=== PATIENT | male | born 1945 | race Caucasian/White ===

== ENCOUNTER 2016-11-29 13:18 | Inpatient (IN) | payer MEDICARE, MEDICAID ==
--- NOTE | 2016-11-29 13:59 | ED Physician Chart ---
Chief Complaint/HPI - Patient Information Date Seen:: 11/29/16 Time Seen:: 13:45 Chief Complaint:: aggressive behavior History of Present Illness:: Patient has reportedly been exhibiting aggressive behavior and using profanity at his assisted living facility. Allergies:: Allergies Allergy/AdvReac Type Severity Reaction Status Date / Time No Known Allergies Allergy Verified 03/21/16 16:50 Historian:: Patient Review:: Nurse's Note Reviewed, Transfer documents Reviewed Review of Systems - Review of Systems General/Constitutional: No fever, No chills, Weight loss Head: No headache Eyes: No loss of vision ENT: No earache Cardio Vascular: No chest pain Pulmonary: No SOB GI: No nausea, No vomiting G/U: No dysuria Musculoskeletal: No bone or joint pain, No muscle pain Endocrine: No polyuria, No polydipsia Psychiatric: Prior psych history Hematopoietic: No bruising Allergic/Immuno: No urticaria Neurological: No syncope, No headache Past Medical History - Past Medical History Past Medical History: HTN, Arthritis, Other (peripheral vascular disease; psychosis; dementia) Family History: None Social History: Non Smoker, Alcohol (slight alcohol consumption only) Surgical History: None Psychiatricy History: Dementia, Other (psychosis) Medication: Reviewed Family Medical History - Family Member Mother History Unknown: Yes Labs/Radiology/EKG Results - Lab Results Results: Laboratory Tests 11/29/16 13:43 POC Glucose 248 H Laboratory Results - last 24 hr 11/29/16 11/29/16 11/29/16 13:43 14:06 14:06 WBC 9.7 RBC 3.71 L Hgb 10.4 L Hct 31.3 L MCV 84.5 MCH 28.1 MCHC Differential 33.3 RDW 14.4 Plt Count 221 MPV 9.6 Neutrophils % 72.8 Lymphocytes % 14.9 L Monocytes % 7.3 Eosinophils % 4.3 Basophils % 0.7 Sodium 136 Potassium 3.9 Chloride 107 Carbon Dioxide 26.0 Anion Gap 6.9 L BUN 29 H Creatinine 1.0 Est GFR ( Amer) TNP Est GFR (Non-Af Amer) TNP BUN/Creatinine Ratio 29.0 Glucose 278 H POC Glucose 248 H Calcium 9.7 Total Bilirubin 0.3 AST 20 ALT 16 Alkaline Phosphatase 91 Total Protein 7.3 Albumin 4.0 L Globulin 3.3 Albumin/Globulin Ratio 1.2 TSH 11/29/16 14:06 WBC RBC Hgb Hct MCV MCH MCHC Differential RDW Plt Count MPV Neutrophils % Lymphocytes % Monocytes % Eosinophils % Basophils % Sodium Potassium Chloride Carbon Dioxide Anion Gap BUN Creatinine Est GFR ( Amer) Est GFR (Non-Af Amer) BUN/Creatinine Ratio Glucose POC Glucose Calcium Total Bilirubin AST ALT Alkaline Phosphatase Total Protein Albumin Globulin Albumin/Globulin Ratio TSH 0.73 Assessment - Assessment General Assessment: Patient uncooperative for EKG ED Septic Shock - . Is Septic Shock (SBP<90, OR Lactate>4 mmol\L) present?: No Reassessment (Disposition) - Reassessment Reassessment Condition:: Unchanged - Diagnosis Diagnosis:: dementia with aggressive behavior - Patient Disposition Admitted to:: [facility] Admitting Medical Physician:: Roly Campbell Admitting Psych Physician:: Nancy Valdes Condition at Disposition:: Stable, Unchanged
[2016-11-29 14:18] LABS: % BASOPHILS 0.7 % (0.0-2.0); % EOSINOPHILS 4.3 % (0.0-5.0); % LYMPHOCYTES 14.9 % (20.0-50.0); % MONOCYTES 7.3 % (2.0-10.0); % NEUTROPHILS 72.8 % (40.0-80.0); HEMATOCRIT 31.3 % (39.0-49.0); HEMOGLOBIN 10.4 gm/dL (12.6-17.4); MEAN CELL VOLUME 84.5 fl (80-99); MEAN CORPUSCULAR HEMOGLOBIN 28.1 pg (27.0-31.0); MEAN CORPUSCULAR HGB CONC 33.3 pg (28.0-36.0); MEAN PLATELET VOLUME 9.6 fl; NEUTROPHILE ABSOLUTE 7.1 Th/cmm (1.8-8.0); PLATELET COUNT 221 Th/cmm (150-400); RED BLOOD COUNT 3.71 Mil/cmm (3.80-5.80); RED CELL DISTRIBUTION WIDTH 14.4 % (11.5-20.0); WHITE BLOOD COUNT 9.7 Th/cmm (4.8-10.8)
[2016-11-29 14:30] LABS: ALB/GLOB RATIO 1.2 (1.0-1.8); ALKALINE PHOSPHATASE 91 U/L (34-104); ANION GAP 6.9 (7.0-16.0); BILIRUBIN,TOTAL 0.3 mg/dL (0.3-1.0); BUN - UREA NITROGEN 29 mg/dL (7-25); CALCIUM SERUM 9.7 mg/dL (8.6-10.3); CHLORIDE 107 mEq/L (98-107); GLUCOSE 278 mg/dL (70-105); POTASSIUM SERUM 3.9 mEq/L (3.5-5.1); SGOT 20 U/L (13-39); SGPT/ALT 16 U/L (7-52); SODIUM SERUM 136 mEq/L (136-145)
[2016-11-29] MEDS ORDERED: Maalox 30 mL Cup PO PRN (16:38)
[2016-11-29 16:48] VITALS: BP 132/65
[2016-11-29] MEDS: INSULIN ASPART SLIDING SCALE 100 UNITS/ML UNIT SUBQ SCH (20:47)
[2016-11-30] MEDS: INSULIN ASPART SLIDING SCALE 100 UNITS/ML UNIT SUBQ SCH ×4 (06:45→21:00)
[2016-11-30] MEDS ORDERED: Multivitamin Tab PO SCH (09:00)
[2016-11-30] MEDS: Insulin Detemir 100 units/mL 10mL Vial SUBQ SCH (09:57)
[2016-11-30] MEDS: Aspirin 81mg Chewable Tab PO SCH (09:59)
--- NOTE | 2016-11-30 12:25 | History & Physical ---
ADMIT DATE: 11/30/2016 IDENTIFYING INFORMATION: The patient is a 71-year-old male. CHIEF COMPLAINT: No answer. HISTORY OF PRESENT ILLNESS: The patient was referred from [facility]. He was cursing, resistant, agitated, restless. He was a poor historian, unable to participate in meaningful conversation; however, he is a well known case to me as I have seen him many times. I have been seeing him at [facility] with a history of dementia and depression. Unable to participate in any meaningful conversation. No current substance abuse. PAST PSYCHIATRIC HISTORY: The patient has multiple prior admissions to this facility because of depression, agitation. The patient has been on Aricept 10 mg at bedtime. MEDICAL HISTORY: The patient has no known drug allergies. MEDICATIONS: The patient is diabetic. Has high blood pressure, chronic pain and high lipid profile. FAMILY AND SOCIAL HISTORY: The patient has been at [facility]. No further information available. No substance abuse, no legal problem. MENTAL STATUS EXAMINATION: The patient is appropriately dressed, ____ well groomed. Mood is depressed. Affect is sad. Thoughts are fragmented. The patient is unable to participate in a meaningful conversation or tell me the date, where he is, why he is here. His body is full of bruises. Unable to participate in a meaningful conversation or give me any information regarding how he feels, if he wants to harm himself or anybody, hearing voices. His long and short-term memory is poor. From my previous evaluation for him, his insight and judgment is impaired. IMPRESSION: AXIS I: Major depression, recurrent with no psychosis; rule out bipolar disorder and dementia. His assets, he wants to get ____, negative poor coping skills. INITIAL TREATMENT PLAN: The patient will be started on Lexapro, continued with the Aricept. We will do group therapy, milieu therapy, individual therapy. ESTIMATED LENGTH OF STAY: 3-7 days. DISCHARGE CRITERIA: Decreasing agitation, depression. After discharge, outpatient treatment. JOB# [id number]
[2016-11-30] MEDS ORDERED: Non-Formulary Item 1 EA (Acetaminophen [Acetaminophen] 650 MG) PO PRN (17:40)
--- NOTE | 2016-11-30 18:11 | History & Physical ---
ADMIT DATE: 11/29/2016 HISTORY OF PRESENT ILLNESS: The patient is a 71-year-old male with long history of diabetes mellitus, hypertension, hyperlipidemia, chronic anemia, dementia, [facility] for more advanced treatment. Apparently, the patient has been agitated, very confused. No fever, no chills, no nausea, no vomiting. PAST MEDICAL HISTORY: Significant for hypertension, hyperlipidemia, diabetes mellitus, chronic anemia, dementia. PAST SURGICAL HISTORY: No recent surgery. ALLERGIES: None. MEDICATIONS: Follow admission reconciliation. SOCIAL HISTORY: No smoking, no alcohol, no drugs. FAMILY HISTORY: Noncontributory. REVIEW OF SYSTEMS: RENAL SYSTEM: No history of chronic renal disorder. CARDIOVASCULAR SYSTEM: No coronary artery disease. ENDOCRINE SYSTEM: He has history of diabetes mellitus. GASTROINTESTINAL SYSTEM: No upper or lower gastrointestinal bleed. NEUROLOGICAL: He has history of dementia. MUSCULOSKELETAL SYSTEM: No muscular dystrophy. HEMATOLOGIC SYSTEM: He has chronic anemia. PHYSICAL EXAMINATION: GENERAL: He is awake, not coherent. VITAL SIGNS: Temperature 97.6, heart rate 70, blood pressure 103/49. HEENT: Normocephalic. Pupils reactive to light and accommodation. Sclerae clear. NECK: Supple. Negative for lymphadenopathy, JVD or bruit. CHEST: Bilateral normal. No rhonchi or wheezing. HEART: S1, S2 normal. No murmur or gallop. ABDOMEN: Soft, bowel sounds positive. EXTREMITIES: No edema. NEUROLOGIC: He is awake, alert, not fully oriented. SKIN: Significant for multiple scratches on the skin of the upper extremities. LABORATORY DATA: White blood cells 9.7, hemoglobin 10.4, hematocrit 31.3, platelet is 221. Sodium 136, potassium 3.9, BUN 29, creatinine ____, glucose 248. ASSESSMENT: 1. Diabetes mellitus. 2. Hypertension. 3. Hyperlipidemia. 4. Chronic anemia. 5. Dementia. PLAN: The patient admitted to the hospital under Dr. Valdes's service. MEDICAL PROBLEMS ADDRESSED DURING THIS HOSPITALIZATION: Dementia, diabetes mellitus. MEDICAL PROBLEMS ADDRESSED AT DISCHARGE: Hypertension, hyperlipidemia. The patient is medically stable for activity. Thank you, Dr. Valdes, for asking me to see your patient. JOB# [id number]
[2016-12-01] MEDS: INSULIN ASPART SLIDING SCALE 100 UNITS/ML UNIT SUBQ SCH ×4 (06:51→21:06)
[2016-12-01] MEDS ORDERED: Magnesium Hydroxide (MOM) 30 mL UDC PO PRN (09:00)
[2016-12-01] MEDS: Aspirin 81mg Chewable Tab PO SCH (09:41)
[2016-12-01] MEDS: Ferrous Sulfate 325 MG TAB PO SCH (09:41)
[2016-12-01] MEDS: Escitalopram Oxalate 5 mg Tab PO SCH (09:41)
[2016-12-01] MEDS: Multivitamin w/ Minerals Tab PO SCH (09:41)
[2016-12-01] MEDS: Insulin Detemir 100 units/mL 10mL Vial SUBQ SCH (10:18)
--- NOTE | 2016-12-01 20:46 | Progress Notes ---
DATE: 12/01/2016 Dr. Brito covering for Dr. Valdes. SUBJECTIVE: Chart reviewed and the patient interviewed. Also discussed the patient's condition with the staff and reviewed records and labs. The patient is still pacing up and down the unit and he is still actively hallucinating and talking to himself. The patient also is easily agitated and has difficulty following other staff directions. The patient also is still confused and is still unable to carry on coherent conversation. Otherwise, the patient is compliant with taking his medications with no side effects of medications. ASSESSMENT: The patient is still agitated and can be dangerous to others. TREATMENT PLAN: We will continue monitoring his behavior and his condition and medications closely, and continue to work on placement issue and also behavioral modification. JOB# [id number]
[2016-12-02] MEDS: INSULIN ASPART SLIDING SCALE 100 UNITS/ML UNIT SUBQ SCH ×3 (06:31→20:30)
[2016-12-02] MEDS: Multivitamin w/ Minerals Tab PO SCH (08:37)
[2016-12-02] MEDS: Escitalopram Oxalate 5 mg Tab PO SCH (08:37)
[2016-12-02] MEDS: Ferrous Sulfate 325 MG TAB PO SCH (08:37)
[2016-12-02] MEDS: Aspirin 81mg Chewable Tab PO SCH (08:38)
[2016-12-02] MEDS: Insulin Detemir 100 units/mL 10mL Vial SUBQ SCH (08:56)
--- NOTE | 2016-12-02 18:56 | Progress Notes ---
DATE: 12/02/2016 Dr. Brito covering for Dr. Valdes. SUBJECTIVE: Chart reviewed and the patient interviewed. Also discussed the patient's condition with the staff and reviewed records and labs. The patient is still anxious and in irritable mood. The patient also is confused and forgetful. Also, is still easily agitated and easily irritable. The patient also still needs redirections. Otherwise, the patient is compliant with taking his medications with no side effects of medications. ASSESSMENT: The patient is still psychotic and needs close monitoring. TREATMENT PLAN: We will continue monitoring his behavior and his condition closely. Also, continue adjusting psychotropic medications and working on behavioral modification. JOB# [id number]
--- NOTE | 2016-12-03 00:23 | Admit Criteria Form ---
Admit Criteria Forms - Admit Criteria Diagnosis: PSYCHIATRIC DISORDERS (Place 'X' for any and all applicable criteria): Ongoing inpatient care may be needed for 1 or more of the following(1)(2)(3)(4)( 6)(7)(8): [ ]I. Danger to self or others not manageable at lower level of care. [ ]II. Grave disability (eg, inability to perform self care necessary at lower level of care) [X ]III. Agitation or inappropriate behavior interfering with care for primary condition (eg, attempting to discontinue lines or drains prematurely, unable to cooperate with respiratory care) [ ]IV. Severe disability or disorder indicated by ALL of the following: [ ]a) Severe behavioral health disorder-related symptoms or condition indicated by 1 or more of the following: [ ]i) Severe problem with cognition, memory, judgment, or impulse control [ ]ii) Severe clinical manifestations (eg, hallucinations, delusions, other acute psychotic symptoms, eliza, extreme agitation or anxiety) [ ]b) Patient management at lower level of care is not feasible until acute intervention or modification is initiated. Extended stay beyond goal length of stay for the primary condition may be needed until ALLof the following are present(1)(2)(3)(4)(722)(23): [ ]a) Danger to self or others is absent or manageable at lower level of care [ ]b) Behavior crisis management, including physical or chemical restraints, is required and is not available at a lower level of care. [ ]c) Behavioral symptoms (e.g., agitation, somnolence, inappropriate behavior) are present, and are not manageable at a lower level of care. [ ]d) Patient cannot understand follow-up treatment and crisis plan. [ ]e) Provider and supports are sufficiently available at lower level of care. [ ]f) Patient can participate (e.g., verify absence of plan for harm) and is in needed of monitoring. The original [facility] too.me content created by [facility] [employer] has been revised. The portions of the content which have been revised are identified through the use of italic text or in bold, and [facility] [employer] has neither reviewed nor approved the modified material. All other unmodified content is copyright [facility]. Please see references footnoted in the original [facility] edition 2017 Admit Criteria Met?: Yes
[2016-12-03] MEDS: INSULIN ASPART SLIDING SCALE 100 UNITS/ML UNIT SUBQ SCH ×5 (06:41→20:00)
[2016-12-03] MEDS: Aspirin 81mg Chewable Tab PO SCH (08:37)
[2016-12-03] MEDS: Multivitamin w/ Minerals Tab PO SCH (08:38)
[2016-12-03] MEDS: Ferrous Sulfate 325 MG TAB PO SCH (08:38)
[2016-12-03] MEDS: Insulin Detemir 100 units/mL 10mL Vial SUBQ SCH (08:39)
--- NOTE | 2016-12-03 11:14 | Progress Notes ---
DATE: 12/03/2016 SUBJECTIVE: Case was discussed with staff of the patient, reviewed records. The patient continues to be confused, unpredictable, impulsive, isolating himself, looking disheveled, disorganized, unable to make safe plan for self-care. He is compliant with the medications with no side effects. No sedation, no nausea. He is on Aricept 10 mg at bedtime. I initiated Lexapro 5 mg daily and I will be initiating Namenda on this patient because of the dementia. We will be increasing Lexapro to 10 mg a day, and he does have Staph positive results and he has the Bactroban ordered on 12/01/2016, and his TSH is within normal range. His chemistry panel showed a high blood sugar, high BUN at 29, and we will continue to work with the patient in group therapy, milieu therapy, adjust the medication as needed. JOB# [id number]
--- NOTE | 2016-12-03 18:08 | Internal Medicine Prog Note ---
Internal Medicine Subjective - Subjective Service Date: 12/03/16 Patient seen and examined:: without staff Patient is:: awake, in bed Per staff patient has:: no adverse event, eating well, confused Internal Medicine Objective - Results Result Diagrams: 11/29/16 14:06 11/29/16 14:06 Recent Labs: Laboratory Last Values WBC 9.7 Th/cmm (4.8-10.8) 11/29/16 14:06 RBC 3.71 Mil/cmm (3.80-5.80) L 11/29/16 14:06 Hgb 10.4 gm/dL (12.6-17.4) L 11/29/16 14:06 Hct 31.3 % (39.0-49.0) L 11/29/16 14:06 MCV 84.5 fl (80-99) 11/29/16 14:06 MCH 28.1 pg (27.0-31.0) 11/29/16 14:06 MCHC Differential 33.3 pg (28.0-36.0) 11/29/16 14:06 RDW 14.4 % (11.5-20.0) 11/29/16 14:06 Plt Count 221 Th/cmm (150-400) 11/29/16 14:06 MPV 9.6 fl 11/29/16 14:06 Neutrophils % 72.8 % (40.0-80.0) 11/29/16 14:06 Lymphocytes % 14.9 % (20.0-50.0) L 11/29/16 14:06 Monocytes % 7.3 % (2.0-10.0) 11/29/16 14:06 Eosinophils % 4.3 % (0.0-5.0) 11/29/16 14:06 Basophils % 0.7 % (0.0-2.0) 11/29/16 14:06 Sodium 136 mEq/L (136-145) 11/29/16 14:06 Potassium 3.9 mEq/L (3.5-5.1) 11/29/16 14:06 Chloride 107 mEq/L (98-107) 11/29/16 14:06 Carbon Dioxide 26.0 mEq/L (21.0-31.0) 11/29/16 14:06 Anion Gap 6.9 (7.0-16.0) L 11/29/16 14:06 BUN 29 mg/dL (7-25) H 11/29/16 14:06 Creatinine 1.0 mg/dL (0.7-1.3) 11/29/16 14:06 Est GFR ( Amer) TNP 11/29/16 14:06 Est GFR (Non-Af Amer) TNP 11/29/16 14:06 BUN/Creatinine Ratio 29.0 11/29/16 14:06 Glucose 278 mg/dL (70-105) H 11/29/16 14:06 POC Glucose 292 MG/DL (70 - 105) H 12/03/16 16:36 Hemoglobin A1c % 8.1 % (4.0-6.0) H 11/29/16 14:06 Calcium 9.7 mg/dL (8.6-10.3) 11/29/16 14:06 Total Bilirubin 0.3 mg/dL (0.3-1.0) 11/29/16 14:06 AST 20 U/L (13-39) 11/29/16 14:06 ALT 16 U/L (7-52) 11/29/16 14:06 Alkaline Phosphatase 91 U/L (34-104) 11/29/16 14:06 Total Protein 7.3 gm/dL (6.0-8.3) 11/29/16 14:06 Albumin 4.0 gm/dL (4.2-5.5) L 11/29/16 14:06 Globulin 3.3 gm/dL 11/29/16 14:06 Albumin/Globulin Ratio 1.2 (1.0-1.8) 11/29/16 14:06 TSH 0.73 uIU/ml (0.34-5.60) 11/29/16 14:06 RPR NONREACTIVE (NONREACTIVE) 11/29/16 14:06 - Physical Exam Vitals and I&O: Vital Signs Temp 97.5 F 12/03/16 05:59 Pulse 59 12/03/16 05:59 Resp 19 12/03/16 05:59 BP 106/42 12/03/16 05:59 Pulse Ox 99 12/03/16 05:59 Intake & Output 12/02/16 12/03/16 12/03/16 18:59 06:59 18:59 Intake Total 800 Balance 800 Intake: Oral 800 Other: # Voids 4 # Bowel Movements 2 Stool Characteristics Soft Soft Active Medications: Current Medications Acetaminophen (Tylenol) 650 mg PO Q4HR PRN PRN Reason: Mild Pain / Temp above 100 Stop: 01/28/17 16:37 Al Hydrox/Mg Hydrox/Simethicone (Maalox) 30 ml PO Q4HR PRN PRN Reason: GI DISTRESS Stop: 01/28/17 16:37 Amlodipine Besylate (Norvasc) 10 mg PO DAILY [facility] Stop: 01/29/17 08:59 Last Admin: 12/03/16 08:38 Dose: Not Given Ascorbic Acid (Vitamin C) 500 mg PO DAILY [facility] Stop: 01/30/17 08:59 Last Admin: 12/03/16 08:38 Dose: 500 mg Aspirin (Aspirin Chewable) 81 mg PO DAILY [facility] Stop: 01/29/17 08:59 Last Admin: 12/03/16 08:37 Dose: 81 mg Docusate Sodium (Colace) 100 mg PO BID [facility] Stop: 01/29/17 08:59 Last Admin: 12/03/16 16:42 Dose: 100 mg Donepezil HCl (Aricept) 10 mg PO HS [facility] Stop: 01/28/17 20:59 Last Admin: 12/02/16 20:30 Dose: 10 mg Escitalopram Oxalate (Lexapro) 10 mg PO DAILY [facility] PRN Reason: Protocol Stop: 02/01/17 08:59 Last Admin: 12/03/16 08:38 Dose: 10 mg Famotidine (Pepcid) 20 mg PO DAILY [facility] Stop: 01/29/17 08:59 Last Admin: 12/03/16 08:38 Dose: 20 mg Ferrous Sulfate (Iron) 325 mg PO DAILY [facility] Stop: 01/30/17 08:59 Last Admin: 12/03/16 08:38 Dose: 325 mg Glipizide (Glucotrol) 5 mg PO BIDAC [facility] Stop: 01/29/17 07:29 Last Admin: 12/03/16 16:42 Dose: 5 mg Insulin Aspart (Novolog Insulin Sliding Scale) 0 units SUBQ ACHS MAURISIO PRN Reason: Protocol Stop: 01/28/17 20:59 Last Admin: 12/03/16 16:54 Dose: 4 units Insulin Detemir (Levemir Insulin) 23 units SUBQ DAILY [facility] Stop: 01/29/17 08:59 Last Admin: 12/03/16 08:39 Dose: Not Given Lisinopril (Zestril) 10 mg PO DAILY [facility] Stop: 01/30/17 08:59 Last Admin: 12/03/16 08:39 Dose: Not Given Lorazepam (Ativan) 0.5 mg PO Q4HR PRN; Protocol PRN Reason: Agitation Stop: 12/29/16 16:37 Last Admin: 12/02/16 20:29 Dose: 0.5 mg Magnesium Hydroxide (Milk Of Magnesia) 30 ml PO DAILY PRN PRN Reason: Constipation Stop: 01/30/17 08:59 Memantine (Namenda) 5 mg PO DAILY [facility] Stop: 02/01/17 08:59 Last Admin: 12/03/16 08:38 Dose: 5 mg Metformin HCl (Glucophage) 1,000 mg PO BID [facility] Stop: 01/28/17 19:14 Last Admin: 12/03/16 16:42 Dose: 1,000 mg Mupirocin (Bactroban Oint) 1 appl NS BID [facility] Stop: 12/06/16 17:01 Last Admin: 12/03/16 08:39 Dose: Not Given Simvastatin (Zocor) 10 mg PO HS MAURISIO PRN Reason: Protocol Stop: 01/28/17 20:59 Last Admin: 12/02/16 20:29 Dose: 10 mg - Procedures Procedures: Procedures Procedure Code Date OTHER GROUP THERAPY 94.44 12/24/14 Internal Medicine Assmt/Plan - Assessment Assessment: 1.DM. 2.DEMENTIA. - Plan Plan: CONTINUE ON CURRENT MEDICATION AND DIET.CASE DISCUSSED WITH NURSE. Nutritional Asmnt/Malnutr-PDOC - Dietary Evaluation Malnutrition Findings (Please click <Entered> for more info): Nutritional Asmnt/Malnutrition Start: 11/30/16 14: 06 Text: Status: Complete Freq: Document 11/30/16 14:06 [email or web address] (Rec: 11/30/16 14:28 [id number] [id number]) Nutritional Asmnt/Malnutrition Patient General Information Nutritional Screening High Risk Screening Diagnosis Major depression Pertinent Medical Hx/Surgical Hx ER: HTN, arthritis, peripheral vascular disease, psychosis, dementia Subjective Information 71 year old male. Spoke to pt sitting on edge of bed, able to ambulate. Pt was pleasant, however a poor historian, forgetful and slightly confused, not suitable for edu due to this, briefly explained [facility] diet. Pt stated usually good appetite, but does not remember if he had breakfast. Confirmed with FNS, pt did have breakfast. Pt reported UBW 130lb, pt appeared overall thin, unable to completep hysica lassessment due to clothing, moderate to eseve wasting to arms, protruding elbows. Pt was excited to calibrate bedscale and obtain CBW, but then forgot what he was doing half way. Observed pt scratching wounds on elbows. Teeth intact. 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 Estimated Nutritional Goals Calories/Kcals/Kg UBW/IBW 130lb/59.1kg Kcals Calculated 1478-1773kcal (25-30kcal/kg) Protein Calculated 59g (1g/kg) Fluid: ml 1478-1773ml (1ml/kcal) Nutritional Problem 1. Problem Problem Altered nutrition related laboratory values related to Etiology DM aeb Signs/Symptoms: glucose 278H, A1c 8.1 Intervention/Recommendation Comments 1. Recommend [id number] to promote glycemic control. Expected Outcomes/Goals Expected Outcomes/Goals 1. PO intake to meet at least 75% fo estimated nutritional needs.
[2016-12-04] MEDS: INSULIN ASPART SLIDING SCALE 100 UNITS/ML UNIT SUBQ SCH ×4 (06:33→20:22)
[2016-12-04] MEDS: Aspirin 81mg Chewable Tab PO SCH (09:13)
[2016-12-04] MEDS: Multivitamin w/ Minerals Tab PO SCH (09:13)
[2016-12-04] MEDS: Ferrous Sulfate 325 MG TAB PO SCH (09:13)
[2016-12-04] MEDS: Insulin Detemir 100 units/mL 10mL Vial SUBQ SCH (16:53)
--- NOTE | 2016-12-04 20:27 | Internal Medicine Prog Note ---
Internal Medicine Subjective - Subjective Service Date: 12/04/16 Patient seen and examined:: with staff Patient is:: awake, in bed Per staff patient has:: no adverse event, eating well, confused Internal Medicine Objective - Results Result Diagrams: 11/29/16 14:06 11/29/16 14:06 Recent Labs: Laboratory Last Values WBC 9.7 Th/cmm (4.8-10.8) 11/29/16 14:06 RBC 3.71 Mil/cmm (3.80-5.80) L 11/29/16 14:06 Hgb 10.4 gm/dL (12.6-17.4) L 11/29/16 14:06 Hct 31.3 % (39.0-49.0) L 11/29/16 14:06 MCV 84.5 fl (80-99) 11/29/16 14:06 MCH 28.1 pg (27.0-31.0) 11/29/16 14:06 MCHC Differential 33.3 pg (28.0-36.0) 11/29/16 14:06 RDW 14.4 % (11.5-20.0) 11/29/16 14:06 Plt Count 221 Th/cmm (150-400) 11/29/16 14:06 MPV 9.6 fl 11/29/16 14:06 Neutrophils % 72.8 % (40.0-80.0) 11/29/16 14:06 Lymphocytes % 14.9 % (20.0-50.0) L 11/29/16 14:06 Monocytes % 7.3 % (2.0-10.0) 11/29/16 14:06 Eosinophils % 4.3 % (0.0-5.0) 11/29/16 14:06 Basophils % 0.7 % (0.0-2.0) 11/29/16 14:06 Sodium 136 mEq/L (136-145) 11/29/16 14:06 Potassium 3.9 mEq/L (3.5-5.1) 11/29/16 14:06 Chloride 107 mEq/L (98-107) 11/29/16 14:06 Carbon Dioxide 26.0 mEq/L (21.0-31.0) 11/29/16 14:06 Anion Gap 6.9 (7.0-16.0) L 11/29/16 14:06 BUN 29 mg/dL (7-25) H 11/29/16 14:06 Creatinine 1.0 mg/dL (0.7-1.3) 11/29/16 14:06 Est GFR ( Amer) TNP 11/29/16 14:06 Est GFR (Non-Af Amer) TNP 11/29/16 14:06 BUN/Creatinine Ratio 29.0 11/29/16 14:06 Glucose 278 mg/dL (70-105) H 11/29/16 14:06 POC Glucose 216 MG/DL (70 - 105) H 12/04/16 19:39 Hemoglobin A1c % 8.1 % (4.0-6.0) H 11/29/16 14:06 Calcium 9.7 mg/dL (8.6-10.3) 11/29/16 14:06 Total Bilirubin 0.3 mg/dL (0.3-1.0) 11/29/16 14:06 AST 20 U/L (13-39) 11/29/16 14:06 ALT 16 U/L (7-52) 11/29/16 14:06 Alkaline Phosphatase 91 U/L (34-104) 11/29/16 14:06 Total Protein 7.3 gm/dL (6.0-8.3) 11/29/16 14:06 Albumin 4.0 gm/dL (4.2-5.5) L 11/29/16 14:06 Globulin 3.3 gm/dL 11/29/16 14:06 Albumin/Globulin Ratio 1.2 (1.0-1.8) 11/29/16 14:06 TSH 0.73 uIU/ml (0.34-5.60) 11/29/16 14:06 RPR NONREACTIVE (NONREACTIVE) 11/29/16 14:06 - Physical Exam Vitals and I&O: Vital Signs Temp 98.1 F 12/04/16 05:57 Pulse 56 12/04/16 05:57 Resp 18 12/04/16 05:57 BP 123/56 12/04/16 05:57 Pulse Ox 96 12/04/16 05:57 Intake & Output 12/04/16 12/04/16 12/05/16 06:59 18:59 06:59 Weight (lbs) 51.165 kg Other: Stool Characteristics Soft Active Medications: Current Medications Acetaminophen (Tylenol) 650 mg PO Q4HR PRN PRN Reason: Mild Pain / Temp above 100 Stop: 01/28/17 16:37 Al Hydrox/Mg Hydrox/Simethicone (Maalox) 30 ml PO Q4HR PRN PRN Reason: GI DISTRESS Stop: 01/28/17 16:37 Amlodipine Besylate (Norvasc) 10 mg PO DAILY [facility] Stop: 01/29/17 08:59 Last Admin: 12/04/16 09:14 Dose: Not Given Ascorbic Acid (Vitamin C) 500 mg PO DAILY [facility] Stop: 01/30/17 08:59 Last Admin: 12/04/16 09:13 Dose: 500 mg Aspirin (Aspirin Chewable) 81 mg PO DAILY [facility] Stop: 01/29/17 08:59 Last Admin: 12/04/16 09:13 Dose: 81 mg Docusate Sodium (Colace) 100 mg PO BID [facility] Stop: 01/29/17 08:59 Last Admin: 12/04/16 16:53 Dose: Not Given Donepezil HCl (Aricept) 10 mg PO HS [facility] Stop: 01/28/17 20:59 Last Admin: 12/04/16 20:20 Dose: 10 mg Escitalopram Oxalate (Lexapro) 10 mg PO DAILY [facility] PRN Reason: Protocol Stop: 02/01/17 08:59 Last Admin: 12/04/16 09:13 Dose: 10 mg Famotidine (Pepcid) 20 mg PO DAILY [facility] Stop: 01/29/17 08:59 Last Admin: 12/04/16 09:13 Dose: 20 mg Ferrous Sulfate (Iron) 325 mg PO DAILY [facility] Stop: 01/30/17 08:59 Last Admin: 12/04/16 09:13 Dose: 325 mg Glipizide (Glucotrol) 5 mg PO BIDAC [facility] Stop: 01/29/17 07:29 Last Admin: 12/04/16 16:52 Dose: 5 mg Insulin Aspart (Novolog Insulin Sliding Scale) 0 units SUBQ ACHS [facility] PRN Reason: Protocol Stop: 01/28/17 20:59 Last Admin: 12/04/16 20:22 Dose: 2 units Insulin Detemir (Levemir Insulin) 23 units SUBQ DAILY [facility] Stop: 01/29/17 08:59 Last Admin: 12/04/16 16:53 Dose: Not Given Lisinopril (Zestril) 10 mg PO DAILY [facility] Stop: 01/30/17 08:59 Last Admin: 12/04/16 09:14 Dose: Not Given Lorazepam (Ativan) 0.5 mg PO Q4HR PRN; Protocol PRN Reason: Agitation Stop: 12/29/16 16:37 Last Admin: 12/02/16 20:29 Dose: 0.5 mg Magnesium Hydroxide (Milk Of Magnesia) 30 ml PO DAILY PRN PRN Reason: Constipation Stop: 01/30/17 08:59 Memantine (Namenda) 5 mg PO DAILY [facility] Stop: 02/01/17 08:59 Last Admin: 12/04/16 09:13 Dose: 5 mg Metformin HCl (Glucophage) 1,000 mg PO BID [facility] Stop: 01/28/17 19:14 Last Admin: 12/04/16 16:52 Dose: 1,000 mg Mupirocin (Bactroban Oint) 1 appl NS BID [facility] Stop: 12/06/16 17:01 Last Admin: 12/04/16 16:53 Dose: Not Given Simvastatin (Zocor) 10 mg PO HS [facility] PRN Reason: Protocol Stop: 01/28/17 20:59 Last Admin: 12/04/16 20:20 Dose: 10 mg - Procedures Procedures: Procedures Procedure Code Date OTHER GROUP THERAPY 94.44 12/24/14 Internal Medicine Assmt/Plan - Assessment Assessment: 1.DM. 2.DEMENTIA. - Plan Plan: CONTINUE ON CURRENT MEDICATION AND DIET.CASE DISCUSSED WITH NURSE. Nutritional Asmnt/Malnutr-PDOC - Dietary Evaluation Malnutrition Findings (Please click <Entered> for more info): Nutritional Asmnt/Malnutrition Start: 11/30/16 14: 06 Text: Status: Complete Freq: Document 11/30/16 14:06 [email or web address] (Rec: 11/30/16 14:28 [email or web address]) Nutritional Asmnt/Malnutrition Patient General Information Nutritional Screening High Risk Screening Diagnosis Major depression Pertinent Medical Hx/Surgical Hx ER: HTN, arthritis, peripheral vascular disease, psychosis, dementia Subjective Information 71 year old male. Spoke to pt sitting on edge of bed, able to ambulate. Pt was pleasant, however a poor historian, forgetful and slightly confused, not suitable for edu due to this, briefly explained [facility] diet. Pt stated usually good appetite, but does not remember if he had breakfast. Confirmed with FNS, pt did have breakfast. Pt reported UBW 130lb, pt appeared overall thin, unable to completep hysica lassessment due to clothing, moderate to eseve wasting to arms, protruding elbows. Pt was excited to calibrate bedscale and obtain CBW, but then forgot what he was doing half way. Observed pt scratching wounds on elbows. Teeth intact. Current Diet Order/ Nutrition Support PATRICIA, [id number] Pertinent Medications Colace, Glucotrol, Novolog, Levemir, Glucophage, Theragran Pertinent Labs 11/29: glucose 278H, A1c 8.1 Nutritional Hx/Data Height 1.63 m Height (Calculated Centimeters) 162.6 Current Weight (lbs) 58.967 kg Weight (Calculated Kilograms) 59.0 Weight (Calculated Grams) 03566.0 Usual body Weight (lbs) 130 [place] Body Weight 130 Weight Status Approriate GI Symptoms Usual diet at home [place]: regular, PATRICIA, 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 Estimated Nutritional Goals Calories/Kcals/Kg UBW/IBW 130lb/59.1kg Kcals Calculated 1478-1773kcal (25-30kcal/kg) Protein Calculated 59g (1g/kg) Fluid: ml 1478-1773ml (1ml/kcal) Nutritional Problem 1. Problem Problem Altered nutrition related laboratory values related to Etiology DM aeb Signs/Symptoms: glucose 278H, A1c 8.1 Intervention/Recommendation Comments 1. Recommend [id number] to promote glycemic control. Expected Outcomes/Goals Expected Outcomes/Goals 1. PO intake to meet at least 75% fo estimated nutritional needs.
--- NOTE | 2016-12-05 04:44 | Psychosocial Evaluation ---
DATE OF SERVICE: 12/04/2016 SUBJECTIVE: Case was discussed with staff of the patient, reviewed records. The patient continues to be confused, agitated, unable to make safe plan for self care. Continues to be unpredictable, impulsive, needing redirection. He did tolerate the increase in Lexapro to 10 mg medication day. He is getting treated also for Staph infection and Namenda was initiated yesterday, and no side effects with the medication, no sedation, no nausea. We will continue to work with the patient in group therapy, milieu therapy, and adjust medications as needed. JOB# [id number]
[2016-12-05] MEDS: INSULIN ASPART SLIDING SCALE 100 UNITS/ML UNIT SUBQ SCH ×4 (06:31→20:26)
[2016-12-05] MEDS: Multivitamin w/ Minerals Tab PO SCH (08:39)
[2016-12-05] MEDS: Ferrous Sulfate 325 MG TAB PO SCH (08:39)
[2016-12-05] MEDS: Aspirin 81mg Chewable Tab PO SCH (08:42)
[2016-12-05] MEDS: Insulin Detemir 100 units/mL 10mL Vial SUBQ SCH (08:42)
--- NOTE | 2016-12-05 10:02 | Progress Notes ---
DATE: 12/05/2016 SUBJECTIVE: The patient seen, chart reviewed, discussed with staff. The patient is referred from [facility], cursing, resistant, agitated, poor historian. Dr. Valdes sees him at [facility]. He is demented. On [id number], the patient is confused, does not know what is going on, agitated, resistive towards care, needing a lot of ADLs, help with prompting, still impulsive, unpredictable, still with safety concerns, very disoriented. Dr. Valdes has him on a medication regimen, which he seems to be tolerating, no side effects, includes Namenda, as well as Aricept, as well as Lexapro. ASSESSMENT AND PLAN: The patient remains symptomatic, still gets agitated, impulsive, unpredictable, resistive to care, not safe for a lower level of care, highly confused. PLAN: We will continue to monitor and titrate medications. The patient is not safe for discharge. [facility]# [id number]
--- NOTE | 2016-12-05 11:37 | Internal Medicine Prog Note ---
Internal Medicine Subjective - Subjective Service Date: 12/05/16 Patient seen and examined:: without staff Patient is:: awake, in bed Per staff patient has:: no adverse event, eating well, confused Internal Medicine Objective - Results Result Diagrams: 11/29/16 14:06 11/29/16 14:06 Recent Labs: Laboratory Last Values WBC 9.7 Th/cmm (4.8-10.8) 11/29/16 14:06 RBC 3.71 Mil/cmm (3.80-5.80) L 11/29/16 14:06 Hgb 10.4 gm/dL (12.6-17.4) L 11/29/16 14:06 Hct 31.3 % (39.0-49.0) L 11/29/16 14:06 MCV 84.5 fl (80-99) 11/29/16 14:06 MCH 28.1 pg (27.0-31.0) 11/29/16 14:06 MCHC Differential 33.3 pg (28.0-36.0) 11/29/16 14:06 RDW 14.4 % (11.5-20.0) 11/29/16 14:06 Plt Count 221 Th/cmm (150-400) 11/29/16 14:06 MPV 9.6 fl 11/29/16 14:06 Neutrophils % 72.8 % (40.0-80.0) 11/29/16 14:06 Lymphocytes % 14.9 % (20.0-50.0) L 11/29/16 14:06 Monocytes % 7.3 % (2.0-10.0) 11/29/16 14:06 Eosinophils % 4.3 % (0.0-5.0) 11/29/16 14:06 Basophils % 0.7 % (0.0-2.0) 11/29/16 14:06 Sodium 136 mEq/L (136-145) 11/29/16 14:06 Potassium 3.9 mEq/L (3.5-5.1) 11/29/16 14:06 Chloride 107 mEq/L (98-107) 11/29/16 14:06 Carbon Dioxide 26.0 mEq/L (21.0-31.0) 11/29/16 14:06 Anion Gap 6.9 (7.0-16.0) L 11/29/16 14:06 BUN 29 mg/dL (7-25) H 11/29/16 14:06 Creatinine 1.0 mg/dL (0.7-1.3) 11/29/16 14:06 Est GFR ( Amer) TNP 11/29/16 14:06 Est GFR (Non-Af Amer) TNP 11/29/16 14:06 BUN/Creatinine Ratio 29.0 11/29/16 14:06 Glucose 278 mg/dL (70-105) H 11/29/16 14:06 POC Glucose 215 MG/DL (70 - 105) H 12/05/16 06:14 Hemoglobin A1c % 8.1 % (4.0-6.0) H 11/29/16 14:06 Calcium 9.7 mg/dL (8.6-10.3) 11/29/16 14:06 Total Bilirubin 0.3 mg/dL (0.3-1.0) 11/29/16 14:06 AST 20 U/L (13-39) 11/29/16 14:06 ALT 16 U/L (7-52) 11/29/16 14:06 Alkaline Phosphatase 91 U/L (34-104) 11/29/16 14:06 Total Protein 7.3 gm/dL (6.0-8.3) 11/29/16 14:06 Albumin 4.0 gm/dL (4.2-5.5) L 11/29/16 14:06 Globulin 3.3 gm/dL 11/29/16 14:06 Albumin/Globulin Ratio 1.2 (1.0-1.8) 11/29/16 14:06 TSH 0.73 uIU/ml (0.34-5.60) 11/29/16 14:06 RPR NONREACTIVE (NONREACTIVE) 11/29/16 14:06 - Physical Exam Vitals and I&O: Vital Signs Temp 97.5 F 12/05/16 06:36 Pulse 60 12/05/16 09:34 Resp 19 12/05/16 09:34 BP 123/68 12/05/16 08:42 Pulse Ox 98 12/05/16 06:36 Intake & Output 12/04/16 12/05/16 12/05/16 18:59 06:59 18:59 Intake Total 180 Balance 180 Weight (lbs) 51.165 kg Intake: Oral 180 Other: # Voids 2 # Bowel Movements 1 Stool Characteristics Soft Soft Soft Active Medications: Current Medications Acetaminophen (Tylenol) 650 mg PO Q4HR PRN PRN Reason: Mild Pain / Temp above 100 Stop: 01/28/17 16:37 Al Hydrox/Mg Hydrox/Simethicone (Maalox) 30 ml PO Q4HR PRN PRN Reason: GI DISTRESS Stop: 01/28/17 16:37 Amlodipine Besylate (Norvasc) 10 mg PO DAILY [facility] Stop: 01/29/17 08:59 Last Admin: 12/05/16 08:42 Dose: 10 mg Ascorbic Acid (Vitamin C) 500 mg PO DAILY [facility] Stop: 01/30/17 08:59 Last Admin: 12/05/16 08:42 Dose: 500 mg Aspirin (Aspirin Chewable) 81 mg PO DAILY [facility] Stop: 01/29/17 08:59 Last Admin: 12/05/16 08:42 Dose: 81 mg Docusate Sodium (Colace) 100 mg PO BID [facility] Stop: 01/29/17 08:59 Last Admin: 12/05/16 08:42 Dose: 100 mg Donepezil HCl (Aricept) 10 mg PO HS [facility] Stop: 01/28/17 20:59 Last Admin: 12/04/16 20:20 Dose: 10 mg Escitalopram Oxalate (Lexapro) 10 mg PO DAILY [facility] PRN Reason: Protocol Stop: 02/01/17 08:59 Last Admin: 12/05/16 08:42 Dose: 10 mg Famotidine (Pepcid) 20 mg PO DAILY [facility] Stop: 01/29/17 08:59 Last Admin: 12/05/16 08:38 Dose: 20 mg Ferrous Sulfate (Iron) 325 mg PO DAILY [facility] Stop: 01/30/17 08:59 Last Admin: 12/05/16 08:39 Dose: 325 mg Glipizide (Glucotrol) 5 mg PO BIDAC [facility] Stop: 01/29/17 07:29 Last Admin: 12/05/16 06:31 Dose: 5 mg Insulin Aspart (Novolog Insulin Sliding Scale) 0 units SUBQ ACHS [facility] PRN Reason: Protocol Stop: 01/28/17 20:59 Last Admin: 12/05/16 06:31 Dose: 2 units Insulin Detemir (Levemir Insulin) 23 units SUBQ DAILY [facility] Stop: 01/29/17 08:59 Last Admin: 12/05/16 08:42 Dose: 23 units Lisinopril (Zestril) 10 mg PO DAILY [facility] Stop: 01/30/17 08:59 Last Admin: 12/05/16 08:40 Dose: 10 mg Lorazepam (Ativan) 0.5 mg PO Q4HR PRN; Protocol PRN Reason: Agitation Stop: 12/29/16 16:37 Last Admin: 12/02/16 20:29 Dose: 0.5 mg Magnesium Hydroxide (Milk Of Magnesia) 30 ml PO DAILY PRN PRN Reason: Constipation Stop: 01/30/17 08:59 Memantine (Namenda) 5 mg PO DAILY [facility] Stop: 02/01/17 08:59 Last Admin: 12/05/16 08:39 Dose: 5 mg Metformin HCl (Glucophage) 1,000 mg PO BID [facility] Stop: 01/28/17 19:14 Last Admin: 12/05/16 08:39 Dose: 1,000 mg Mupirocin (Bactroban Oint) 1 appl NS BID [facility] Stop: 12/06/16 17:01 Last Admin: 12/05/16 08:44 Dose: 1 appl Simvastatin (Zocor) 10 mg PO HS [facility] PRN Reason: Protocol Stop: 01/28/17 20:59 Last Admin: 12/04/16 20:20 Dose: 10 mg - Procedures Procedures: Procedures Procedure Code Date OTHER GROUP THERAPY 94.44 12/24/14 Internal Medicine Assmt/Plan - Assessment Assessment: 1.DM. 2.DEMENTIA. 3.DJD. - Plan Plan: CONTINUE ON CURRENT MEDICATION AND DIET.CASE DISCUSSED WITH NURSE. Nutritional Asmnt/Malnutr-PDOC - Dietary Evaluation Malnutrition Findings (Please click <Entered> for more info): Nutritional Asmnt/Malnutrition Start: 11/30/16 14: 06 Text: Status: Complete Freq: Document 11/30/16 14:06 GSUN (Rec: 11/30/16 14:28 [id number] [email or web address]) Nutritional Asmnt/Malnutrition Patient General Information Nutritional Screening High Risk Screening Diagnosis Major depression Pertinent Medical Hx/Surgical Hx ER: HTN, arthritis, peripheral vascular disease, psychosis, dementia Subjective Information 71 year old male. Spoke to pt sitting on edge of bed, able to ambulate. Pt was pleasant, however a poor historian, forgetful and slightly confused, not suitable for [facility] due to this, briefly explained [facility] diet. Pt stated usually good appetite, but does not remember if he had breakfast. Confirmed with FNS, pt did have breakfast. Pt reported UBW 130lb, pt appeared overall thin, unable to completep hysica lassessment due to clothing, moderate to eseve wasting to arms, protruding elbows. Pt was excited to calibrate bedscale and obtain CBW, but then forgot what he was doing half way. Observed pt scratching wounds on elbows. Teeth intact. 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 Estimated Nutritional Goals Calories/Kcals/Kg UBW/IBW 130lb/59.1kg Kcals Calculated 1478-1773kcal (25-30kcal/kg) Protein Calculated 59g (1g/kg) Fluid: ml 1478-1773ml (1ml/kcal) Nutritional Problem 1. Problem Problem Altered nutrition related laboratory values related to Etiology DM aeb Signs/Symptoms: glucose 278H, A1c 8.1 Intervention/Recommendation Comments 1. Recommend [id number] to promote glycemic control. Expected Outcomes/Goals Expected Outcomes/Goals 1. PO intake to meet at least 75% fo estimated nutritional needs.
[2016-12-06] MEDS: INSULIN ASPART SLIDING SCALE 100 UNITS/ML UNIT SUBQ SCH ×4 (06:35→20:56)
[2016-12-06] MEDS: Aspirin 81mg Chewable Tab PO SCH (08:45)
[2016-12-06] MEDS: Ferrous Sulfate 325 MG TAB PO SCH (08:46)
[2016-12-06] MEDS: Insulin Detemir 100 units/mL 10mL Vial SUBQ SCH (08:48)
[2016-12-06] MEDS: Multivitamin w/ Minerals Tab PO SCH (08:51)
--- NOTE | 2016-12-06 15:27 | Internal Medicine Prog Note ---
Internal Medicine Subjective - Subjective Service Date: 12/06/16 Patient seen and examined:: without staff Patient is:: awake, in bed Per staff patient has:: no adverse event, eating well, confused Internal Medicine Objective - Results Result Diagrams: 11/29/16 14:06 11/29/16 14:06 Recent Labs: Laboratory Last Values WBC 9.7 Th/cmm (4.8-10.8) 11/29/16 14:06 RBC 3.71 Mil/cmm (3.80-5.80) L 11/29/16 14:06 Hgb 10.4 gm/dL (12.6-17.4) L 11/29/16 14:06 Hct 31.3 % (39.0-49.0) L 11/29/16 14:06 MCV 84.5 fl (80-99) 11/29/16 14:06 MCH 28.1 pg (27.0-31.0) 11/29/16 14:06 MCHC Differential 33.3 pg (28.0-36.0) 11/29/16 14:06 RDW 14.4 % (11.5-20.0) 11/29/16 14:06 Plt Count 221 Th/cmm (150-400) 11/29/16 14:06 MPV 9.6 fl 11/29/16 14:06 Neutrophils % 72.8 % (40.0-80.0) 11/29/16 14:06 Lymphocytes % 14.9 % (20.0-50.0) L 11/29/16 14:06 Monocytes % 7.3 % (2.0-10.0) 11/29/16 14:06 Eosinophils % 4.3 % (0.0-5.0) 11/29/16 14:06 Basophils % 0.7 % (0.0-2.0) 11/29/16 14:06 Sodium 136 mEq/L (136-145) 11/29/16 14:06 Potassium 3.9 mEq/L (3.5-5.1) 11/29/16 14:06 Chloride 107 mEq/L (98-107) 11/29/16 14:06 Carbon Dioxide 26.0 mEq/L (21.0-31.0) 11/29/16 14:06 Anion Gap 6.9 (7.0-16.0) L 11/29/16 14:06 BUN 29 mg/dL (7-25) H 11/29/16 14:06 Creatinine 1.0 mg/dL (0.7-1.3) 11/29/16 14:06 Est GFR ( Amer) TNP 11/29/16 14:06 Est GFR (Non-Af Amer) TNP 11/29/16 14:06 BUN/Creatinine Ratio 29.0 11/29/16 14:06 Glucose 278 mg/dL (70-105) H 11/29/16 14:06 POC Glucose 135 MG/DL (70 - 105) H 12/06/16 12:09 Hemoglobin A1c % 8.1 % (4.0-6.0) H 11/29/16 14:06 Calcium 9.7 mg/dL (8.6-10.3) 11/29/16 14:06 Total Bilirubin 0.3 mg/dL (0.3-1.0) 11/29/16 14:06 AST 20 U/L (13-39) 11/29/16 14:06 ALT 16 U/L (7-52) 11/29/16 14:06 Alkaline Phosphatase 91 U/L (34-104) 11/29/16 14:06 Total Protein 7.3 gm/dL (6.0-8.3) 11/29/16 14:06 Albumin 4.0 gm/dL (4.2-5.5) L 11/29/16 14:06 Globulin 3.3 gm/dL 11/29/16 14:06 Albumin/Globulin Ratio 1.2 (1.0-1.8) 11/29/16 14:06 TSH 0.73 uIU/ml (0.34-5.60) 11/29/16 14:06 RPR NONREACTIVE (NONREACTIVE) 11/29/16 14:06 - Physical Exam Vitals and I&O: Vital Signs Temp 97.4 F 12/06/16 06:28 Pulse 60 12/06/16 06:28 Resp 20 12/06/16 06:28 BP 103/69 12/06/16 06:28 Pulse Ox 98 12/06/16 06:28 Intake & Output 12/05/16 12/06/16 12/06/16 18:59 06:59 18:59 Intake Total 1040 Balance 1040 Intake: Oral 1040 Other: # Voids 3 # Bowel Movements 1 Stool Characteristics Soft Soft Active Medications: Current Medications Acetaminophen (Tylenol) 650 mg PO Q4HR PRN PRN Reason: Mild Pain / Temp above 100 Stop: 01/28/17 16:37 Al Hydrox/Mg Hydrox/Simethicone (Maalox) 30 ml PO Q4HR PRN PRN Reason: GI DISTRESS Stop: 01/28/17 16:37 Amlodipine Besylate (Norvasc) 10 mg PO DAILY [facility] Stop: 01/29/17 08:59 Last Admin: 12/05/16 08:42 Dose: 10 mg Ascorbic Acid (Vitamin C) 500 mg PO DAILY [facility] Stop: 01/30/17 08:59 Last Admin: 12/05/16 08:42 Dose: 500 mg Aspirin (Aspirin Chewable) 81 mg PO DAILY [facility] Stop: 01/29/17 08:59 Last Admin: 12/05/16 08:42 Dose: 81 mg Docusate Sodium (Colace) 100 mg PO BID [facility] Stop: 01/29/17 08:59 Last Admin: 12/05/16 16:49 Dose: 100 mg Donepezil HCl (Aricept) 10 mg PO HS [facility] Stop: 01/28/17 20:59 Last Admin: 12/05/16 20:26 Dose: 10 mg Escitalopram Oxalate (Lexapro) 10 mg PO DAILY [facility] PRN Reason: Protocol Stop: 02/01/17 08:59 Last Admin: 12/05/16 08:42 Dose: 10 mg Famotidine (Pepcid) 20 mg PO DAILY [facility] Stop: 01/29/17 08:59 Last Admin: 12/05/16 08:38 Dose: 20 mg Ferrous Sulfate (Iron) 325 mg PO DAILY [facility] Stop: 01/30/17 08:59 Last Admin: 12/05/16 08:39 Dose: 325 mg Glipizide (Glucotrol) 5 mg PO BIDAC [facility] Stop: 01/29/17 07:29 Last Admin: 12/06/16 06:34 Dose: Not Given Insulin Aspart (Novolog Insulin Sliding Scale) 0 units SUBQ ACHS [facility] PRN Reason: Protocol Stop: 01/28/17 20:59 Last Admin: 12/06/16 06:35 Dose: Not Given Insulin Detemir (Levemir Insulin) 23 units SUBQ DAILY [facility] Stop: 01/29/17 08:59 Last Admin: 12/05/16 08:42 Dose: 23 units Lisinopril (Zestril) 10 mg PO DAILY [facility] Stop: 01/30/17 08:59 Last Admin: 12/05/16 08:40 Dose: 10 mg Lorazepam (Ativan) 0.5 mg PO Q4HR PRN; Protocol PRN Reason: Agitation Stop: 12/29/16 16:37 Last Admin: 12/02/16 20:29 Dose: 0.5 mg Magnesium Hydroxide (Milk Of Magnesia) 30 ml PO DAILY PRN PRN Reason: Constipation Stop: 01/30/17 08:59 Memantine (Namenda) 5 mg PO DAILY [facility] Stop: 02/01/17 08:59 Last Admin: 12/05/16 08:39 Dose: 5 mg Metformin HCl (Glucophage) 1,000 mg PO BID [facility] Stop: 01/28/17 19:14 Last Admin: 12/05/16 16:49 Dose: 1,000 mg Mupirocin (Bactroban Oint) 1 appl NS BID [facility] Stop: 12/06/16 17:01 Last Admin: 12/05/16 16:49 Dose: 1 appl Simvastatin (Zocor) 10 mg PO HS [facility] PRN Reason: Protocol Stop: 01/28/17 20:59 Last Admin: 12/05/16 20:26 Dose: 10 mg - Procedures Procedures: Procedures Procedure Code Date OTHER GROUP THERAPY 94.44 12/24/14 Internal Medicine Assmt/Plan - Assessment Assessment: 1.DM. 2.DEMENTIA. 3.DJD. - Plan Plan: CONTINUE ON CURRENT MEDICATION AND DIET. Nutritional Asmnt/Malnutr-PDOC - Dietary Evaluation Malnutrition Findings (Please click <Entered> for more info): Nutritional Asmnt/Malnutrition Start: 11/30/16 14: 06 Text: Status: Complete Freq: Document 11/30/16 14:06 [email or web address] (Rec: 11/30/16 14:28 [id number] [email or web address]) Nutritional Asmnt/Malnutrition Patient General Information Nutritional Screening High Risk Screening Diagnosis Major depression Pertinent Medical Hx/Surgical Hx ER: HTN, arthritis, peripheral vascular disease, psychosis, dementia Subjective Information 71 year old male. Spoke to pt sitting on edge of bed, able to ambulate. Pt was pleasant, however a poor historian, forgetful and slightly confused, not suitable for [facility] due to this, briefly explained [facility] diet. Pt stated usually good appetite, but does not remember if he had breakfast. Confirmed with FNS, pt did have breakfast. Pt reported UBW 130lb, pt appeared overall thin, unable to completep hysica lassessment due to clothing, moderate to eseve wasting to arms, protruding elbows. Pt was excited to calibrate bedscale and obtain CBW, but then forgot what he was doing half way. Observed pt scratching wounds on elbows. Teeth intact. Current Diet Order/ Nutrition Support PATRICIA, [id number] Pertinent Medications Colace, Glucotrol, Novolog, Levemir, Glucophage, Theragran Pertinent Labs 11/29: glucose 278H, A1c 8.1 Nutritional Hx/Data Height 1.63 m Height (Calculated Centimeters) 162.6 Current Weight (lbs) 58.967 kg Weight (Calculated Kilograms) 59.0 Weight (Calculated Grams) 00278.0 Usual body Weight (lbs) 130 [place] Body Weight 130 Weight Status Approriate GI Symptoms Usual diet at home [place]: regular, PATRICIA, [facility] Skin Integrity/Comment: Marko Miranda. flat drier: skin intact. Estimated Nutritional Goals Calories/Kcals/Kg UBW/IBW 130lb/59.1kg Kcals Calculated 1478-1773kcal (25-30kcal/kg) Protein Calculated 59g (1g/kg) Fluid: ml 1478-1773ml (1ml/kcal) Nutritional Problem 1. Problem Problem Altered nutrition related laboratory values related to Etiology DM aeb Signs/Symptoms: glucose 278H, A1c 8.1 Intervention/Recommendation Comments 1. Recommend [id number] to promote glycemic control. Expected Outcomes/Goals Expected Outcomes/Goals 1. PO intake to meet at least 75% fo estimated nutritional needs.
--- NOTE | 2016-12-07 02:19 | Progress Notes ---
DATE: 12/06/2016 SUBJECTIVE: The patient was seen, chart reviewed, and discussed with staff. The patient remains confused, does not know where he is. He states he is "in [place]," does not know the year, he knows the month is November. The patient remains resistive towards care, needing a lot of attention to ADLs, resistant towards care, unpredictable, impulsive. No medication side effect noted. Medications were reviewed. He is isolative and withdrawn. ASSESSMENT: The patient remains symptomatic, still agitated, impulsive, highly confused, and disoriented. PLAN: We will continue to monitor closely, titrate medications. JOB# [id number]
[2016-12-07] MEDS: INSULIN ASPART SLIDING SCALE 100 UNITS/ML UNIT SUBQ SCH ×4 (06:41→22:08)
[2016-12-07] MEDS: Aspirin 81mg Chewable Tab PO SCH (08:41)
[2016-12-07] MEDS: Multivitamin w/ Minerals Tab PO SCH (08:42)
[2016-12-07] MEDS: Ferrous Sulfate 325 MG TAB PO SCH (08:43)
[2016-12-07] MEDS: Insulin Detemir 100 units/mL 10mL Vial SUBQ SCH (08:49)
--- NOTE | 2016-12-07 19:25 | Internal Medicine Prog Note ---
Internal Medicine Subjective - Subjective Service Date: 12/07/16 Patient seen and examined:: without staff Patient is:: awake, in bed Per staff patient has:: no adverse event, eating well, confused Internal Medicine Objective - Results Result Diagrams: 11/29/16 14:06 11/29/16 14:06 Recent Labs: Laboratory Last Values WBC 9.7 Th/cmm (4.8-10.8) 11/29/16 14:06 RBC 3.71 Mil/cmm (3.80-5.80) L 11/29/16 14:06 Hgb 10.4 gm/dL (12.6-17.4) L 11/29/16 14:06 Hct 31.3 % (39.0-49.0) L 11/29/16 14:06 MCV 84.5 fl (80-99) 11/29/16 14:06 MCH 28.1 pg (27.0-31.0) 11/29/16 14:06 MCHC Differential 33.3 pg (28.0-36.0) 11/29/16 14:06 RDW 14.4 % (11.5-20.0) 11/29/16 14:06 Plt Count 221 Th/cmm (150-400) 11/29/16 14:06 MPV 9.6 fl 11/29/16 14:06 Neutrophils % 72.8 % (40.0-80.0) 11/29/16 14:06 Lymphocytes % 14.9 % (20.0-50.0) L 11/29/16 14:06 Monocytes % 7.3 % (2.0-10.0) 11/29/16 14:06 Eosinophils % 4.3 % (0.0-5.0) 11/29/16 14:06 Basophils % 0.7 % (0.0-2.0) 11/29/16 14:06 Sodium 136 mEq/L (136-145) 11/29/16 14:06 Potassium 3.9 mEq/L (3.5-5.1) 11/29/16 14:06 Chloride 107 mEq/L (98-107) 11/29/16 14:06 Carbon Dioxide 26.0 mEq/L (21.0-31.0) 11/29/16 14:06 Anion Gap 6.9 (7.0-16.0) L 11/29/16 14:06 BUN 29 mg/dL (7-25) H 11/29/16 14:06 Creatinine 1.0 mg/dL (0.7-1.3) 11/29/16 14:06 Est GFR ( Amer) TNP 11/29/16 14:06 Est GFR (Non-Af Amer) TNP 11/29/16 14:06 BUN/Creatinine Ratio 29.0 11/29/16 14:06 Glucose 278 mg/dL (70-105) H 11/29/16 14:06 POC Glucose 116 MG/DL (70 - 105) H 12/07/16 16:25 Hemoglobin A1c % 8.1 % (4.0-6.0) H 11/29/16 14:06 Calcium 9.7 mg/dL (8.6-10.3) 11/29/16 14:06 Total Bilirubin 0.3 mg/dL (0.3-1.0) 11/29/16 14:06 AST 20 U/L (13-39) 11/29/16 14:06 ALT 16 U/L (7-52) 11/29/16 14:06 Alkaline Phosphatase 91 U/L (34-104) 11/29/16 14:06 Total Protein 7.3 gm/dL (6.0-8.3) 11/29/16 14:06 Albumin 4.0 gm/dL (4.2-5.5) L 11/29/16 14:06 Globulin 3.3 gm/dL 11/29/16 14:06 Albumin/Globulin Ratio 1.2 (1.0-1.8) 11/29/16 14:06 TSH 0.73 uIU/ml (0.34-5.60) 11/29/16 14:06 RPR NONREACTIVE (NONREACTIVE) 11/29/16 14:06 - Physical Exam Vitals and I&O: Vital Signs Temp 97.8 F 12/07/16 16:34 Pulse 60 12/07/16 16:34 Resp 20 12/07/16 16:34 BP 106/54 12/07/16 16:34 Pulse Ox 97 12/07/16 16:34 Intake & Output 12/07/16 12/07/16 12/08/16 06:59 18:59 06:59 Intake Total 120 900 Balance 120 900 Weight (lbs) 53.479 kg Intake: Oral 120 900 Other: # Voids 1 4 # Bowel Movements 1 1 Stool Characteristics Soft Active Medications: Current Medications Acetaminophen (Tylenol) 650 mg PO Q4HR PRN PRN Reason: Mild Pain / Temp above 100 Stop: 01/28/17 16:37 Al Hydrox/Mg Hydrox/Simethicone (Maalox) 30 ml PO Q4HR PRN PRN Reason: GI DISTRESS Stop: 01/28/17 16:37 Amlodipine Besylate (Norvasc) 10 mg PO DAILY [facility] Stop: 01/29/17 08:59 Last Admin: 12/07/16 08:42 Dose: Not Given Ascorbic Acid (Vitamin C) 500 mg PO DAILY [facility] Stop: 01/30/17 08:59 Last Admin: 12/07/16 08:40 Dose: 500 mg Aspirin (Aspirin Chewable) 81 mg PO DAILY [facility] Stop: 01/29/17 08:59 Last Admin: 12/07/16 08:41 Dose: 81 mg Docusate Sodium (Colace) 100 mg PO BID [facility] Stop: 01/29/17 08:59 Last Admin: 12/07/16 16:27 Dose: 100 mg Donepezil HCl (Aricept) 10 mg PO HS [facility] Stop: 01/28/17 20:59 Last Admin: 12/06/16 20:55 Dose: 10 mg Escitalopram Oxalate (Lexapro) 10 mg PO DAILY [facility] PRN Reason: Protocol Stop: 02/01/17 08:59 Last Admin: 12/07/16 08:40 Dose: 10 mg Famotidine (Pepcid) 20 mg PO DAILY [facility] Stop: 01/29/17 08:59 Last Admin: 12/07/16 08:40 Dose: 20 mg Ferrous Sulfate (Iron) 325 mg PO DAILY [facility] Stop: 01/30/17 08:59 Last Admin: 12/07/16 08:43 Dose: 325 mg Glipizide (Glucotrol) 5 mg PO BIDAC [facility] Stop: 01/29/17 07:29 Last Admin: 12/07/16 16:27 Dose: 5 mg Insulin Aspart (Novolog Insulin Sliding Scale) 0 units SUBQ ACHS [facility] PRN Reason: Protocol Stop: 01/28/17 20:59 Last Admin: 12/07/16 16:28 Dose: Not Given Insulin Detemir (Levemir Insulin) 23 units SUBQ DAILY [facility] Stop: 01/29/17 08:59 Last Admin: 12/07/16 08:49 Dose: 23 units Lisinopril (Zestril) 10 mg PO DAILY [facility] Stop: 01/30/17 08:59 Last Admin: 12/07/16 08:41 Dose: Not Given Lorazepam (Ativan) 0.5 mg PO Q4HR PRN; Protocol PRN Reason: Agitation Stop: 12/29/16 16:37 Last Admin: 12/02/16 20:29 Dose: 0.5 mg Magnesium Hydroxide (Milk Of Magnesia) 30 ml PO DAILY PRN PRN Reason: Constipation Stop: 01/30/17 08:59 Memantine (Namenda) 5 mg PO DAILY [facility] Stop: 02/01/17 08:59 Last Admin: 12/07/16 08:43 Dose: 5 mg Metformin HCl (Glucophage) 1,000 mg PO BID [facility] Stop: 01/28/17 19:14 Last Admin: 12/07/16 16:27 Dose: 1,000 mg Simvastatin (Zocor) 10 mg PO HS [facility] PRN Reason: Protocol Stop: 01/28/17 20:59 Last Admin: 12/06/16 20:55 Dose: 10 mg - Procedures Procedures: Procedures Procedure Code Date OTHER GROUP THERAPY 94.44 12/24/14 Internal Medicine Assmt/Plan - Assessment Assessment: 1.DM. 2.DEMENTIA. 3.DJD. - Plan Plan: CONTINUE ON CURRENT MEDICATION AND DIET. Nutritional Asmnt/Malnutr-PDOC - Dietary Evaluation Malnutrition Findings (Please click <Entered> for more info): Nutritional Asmnt/Malnutrition Start: 11/30/16 14: 06 Text: Status: Complete Freq: Document 11/30/16 14:06 GSUN (Rec: 11/30/16 14:28 [email or web address] [email or web address]) Nutritional Asmnt/Malnutrition Patient General Information Nutritional Screening High Risk Screening Diagnosis Major depression Pertinent Medical Hx/Surgical Hx ER: HTN, arthritis, peripheral vascular disease, psychosis, dementia Subjective Information 71 year old male. Spoke to pt sitting on edge of bed, able to ambulate. Pt was pleasant, however a poor historian, forgetful and slightly confused, not suitable for [facility] due to this, briefly explained [facility] diet. Pt stated usually good appetite, but does not remember if he had breakfast. Confirmed with FNS, pt did have breakfast. Pt reported UBW 130lb, pt appeared overall thin, unable to completep hysica lassessment due to clothing, moderate to eseve wasting to arms, protruding elbows. Pt was excited to calibrate bedscale and obtain CBW, but then forgot what he was doing half way. Observed pt scratching wounds on elbows. Teeth intact. 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 Estimated Nutritional Goals Calories/Kcals/Kg UBW/IBW 130lb/59.1kg Kcals Calculated 1478-1773kcal (25-30kcal/kg) Protein Calculated 59g (1g/kg) Fluid: ml 1478-1773ml (1ml/kcal) Nutritional Problem 1. Problem Problem Altered nutrition related laboratory values related to Etiology DM aeb Signs/Symptoms: glucose 278H, A1c 8.1 Intervention/Recommendation Comments 1. Recommend [id number] to promote glycemic control. Expected Outcomes/Goals Expected Outcomes/Goals 1. PO intake to meet at least 75% fo estimated nutritional needs.
--- NOTE | 2016-12-07 23:39 | Progress Notes ---
DATE: 12/07/2016 SUBJECTIVE: The patient seen, chart reviewed, discussed with staff. The patient referred from [place] agitated, aggressive, confused. He still is confused, pacing, resistive towards care, needing prompting for ADLs, prompting for eating, confused, does not know the year, the month. Not answering questions appropriately, remains somewhat withdrawn, sullen. ASSESSMENT: The patient remains symptomatic, still gets agitated, impulsive, unpredictable, not safe for a lower level of care. PLAN: The patient is not safe for discharge at this time, currently on Aricept 10 mg, Lexapro 10 mg, also Namenda 5 mg. We will continue medications at current dosage. The patient is not safe for a lower level of care. No confirmed placement. The patient cannot care for his basic needs. JOB# [id number]
[2016-12-08] MEDS: INSULIN ASPART SLIDING SCALE 100 UNITS/ML UNIT SUBQ SCH ×4 (06:35→21:18)
[2016-12-08] MEDS: Multivitamin w/ Minerals Tab PO SCH (08:41)
[2016-12-08] MEDS: Aspirin 81mg Chewable Tab PO SCH (08:41)
[2016-12-08] MEDS: Ferrous Sulfate 325 MG TAB PO SCH (08:42)
[2016-12-08] MEDS: Insulin Detemir 100 units/mL 10mL Vial SUBQ SCH (09:30)
--- NOTE | 2016-12-08 12:21 | Progress Notes ---
DATE: 12/08/2016 SUBJECTIVE: The patient seen, chart reviewed, discussed with staff. The patient remains confused, disoriented, withdrawn, forgetful, wandering, needing a lot of redirection and prompting, unable to tell me why he is here or the year or where he is. Remains isolative, withdrawn, highly forgetful, unable to really describe a plan for food, clothing and prison and there are concerns about grave disability. Medications were reviewed. No overt side effects. ASSESSMENT: The patient remains symptomatic, still highly confused, disoriented, not safe for discharge. PLAN: Continue to monitor and titrate medications. Coordinate care with executive secretary social welfare regarding safe discharge plan and good psychiatric followup. [facility]# [id number]
--- NOTE | 2016-12-08 14:03 | Internal Medicine Prog Note ---
Internal Medicine Subjective - Subjective Service Date: 12/08/16 Patient seen and examined:: without staff Patient is:: awake, in bed, denies any new complaints Per staff patient has:: no adverse event, eating well, confused Internal Medicine Objective - Results Result Diagrams: 11/29/16 14:06 11/29/16 14:06 Recent Labs: Laboratory Last Values WBC 9.7 Th/cmm (4.8-10.8) 11/29/16 14:06 RBC 3.71 Mil/cmm (3.80-5.80) L 11/29/16 14:06 Hgb 10.4 gm/dL (12.6-17.4) L 11/29/16 14:06 Hct 31.3 % (39.0-49.0) L 11/29/16 14:06 MCV 84.5 fl (80-99) 11/29/16 14:06 MCH 28.1 pg (27.0-31.0) 11/29/16 14:06 MCHC Differential 33.3 pg (28.0-36.0) 11/29/16 14:06 RDW 14.4 % (11.5-20.0) 11/29/16 14:06 Plt Count 221 Th/cmm (150-400) 11/29/16 14:06 MPV 9.6 fl 11/29/16 14:06 Neutrophils % 72.8 % (40.0-80.0) 11/29/16 14:06 Lymphocytes % 14.9 % (20.0-50.0) L 11/29/16 14:06 Monocytes % 7.3 % (2.0-10.0) 11/29/16 14:06 Eosinophils % 4.3 % (0.0-5.0) 11/29/16 14:06 Basophils % 0.7 % (0.0-2.0) 11/29/16 14:06 Sodium 136 mEq/L (136-145) 11/29/16 14:06 Potassium 3.9 mEq/L (3.5-5.1) 11/29/16 14:06 Chloride 107 mEq/L (98-107) 11/29/16 14:06 Carbon Dioxide 26.0 mEq/L (21.0-31.0) 11/29/16 14:06 Anion Gap 6.9 (7.0-16.0) L 11/29/16 14:06 BUN 29 mg/dL (7-25) H 11/29/16 14:06 Creatinine 1.0 mg/dL (0.7-1.3) 11/29/16 14:06 Est GFR ( Amer) TNP 11/29/16 14:06 Est GFR (Non-Af Amer) TNP 11/29/16 14:06 BUN/Creatinine Ratio 29.0 11/29/16 14:06 Glucose 278 mg/dL (70-105) H 11/29/16 14:06 POC Glucose 164 MG/DL (70 - 105) H 12/08/16 11:38 Hemoglobin A1c % 8.1 % (4.0-6.0) H 11/29/16 14:06 Calcium 9.7 mg/dL (8.6-10.3) 11/29/16 14:06 Total Bilirubin 0.3 mg/dL (0.3-1.0) 11/29/16 14:06 AST 20 U/L (13-39) 11/29/16 14:06 ALT 16 U/L (7-52) 11/29/16 14:06 Alkaline Phosphatase 91 U/L (34-104) 11/29/16 14:06 Total Protein 7.3 gm/dL (6.0-8.3) 11/29/16 14:06 Albumin 4.0 gm/dL (4.2-5.5) L 11/29/16 14:06 Globulin 3.3 gm/dL 11/29/16 14:06 Albumin/Globulin Ratio 1.2 (1.0-1.8) 11/29/16 14:06 TSH 0.73 uIU/ml (0.34-5.60) 11/29/16 14:06 RPR NONREACTIVE (NONREACTIVE) 11/29/16 14:06 - Physical Exam Vitals and I&O: Vital Signs Temp 97.9 F 12/07/16 20:00 Pulse 50 12/08/16 09:30 Resp 19 12/07/16 20:00 BP 129/44 12/08/16 09:30 Pulse Ox 96 12/07/16 20:00 Intake & Output 12/07/16 12/08/16 12/08/16 18:59 06:59 18:59 Intake Total 900 400 Balance 900 400 Weight (lbs) 53.479 kg Intake: Oral 900 400 Other: # Voids 4 2 # Bowel Movements 1 0 Active Medications: Current Medications Acetaminophen (Tylenol) 650 mg PO Q4HR PRN PRN Reason: Mild Pain / Temp above 100 Stop: 01/28/17 16:37 Al Hydrox/Mg Hydrox/Simethicone (Maalox) 30 ml PO Q4HR PRN PRN Reason: GI DISTRESS Stop: 01/28/17 16:37 Amlodipine Besylate (Norvasc) 10 mg PO DAILY [facility] Stop: 01/29/17 08:59 Last Admin: 12/08/16 09:30 Dose: Not Given Ascorbic Acid (Vitamin C) 500 mg PO DAILY [facility] Stop: 01/30/17 08:59 Last Admin: 12/08/16 08:41 Dose: 500 mg Aspirin (Aspirin Chewable) 81 mg PO DAILY [facility] Stop: 01/29/17 08:59 Last Admin: 12/08/16 08:41 Dose: 81 mg Docusate Sodium (Colace) 100 mg PO BID [facility] Stop: 01/29/17 08:59 Last Admin: 12/08/16 08:42 Dose: 100 mg Donepezil HCl (Aricept) 10 mg PO HS [facility] Stop: 01/28/17 20:59 Last Admin: 12/07/16 20:57 Dose: 10 mg Escitalopram Oxalate (Lexapro) 10 mg PO DAILY [facility] PRN Reason: Protocol Stop: 02/01/17 08:59 Last Admin: 12/08/16 08:41 Dose: 10 mg Famotidine (Pepcid) 20 mg PO DAILY [facility] Stop: 01/29/17 08:59 Last Admin: 12/08/16 08:41 Dose: 20 mg Ferrous Sulfate (Iron) 325 mg PO DAILY [facility] Stop: 01/30/17 08:59 Last Admin: 12/08/16 08:42 Dose: 325 mg Glipizide (Glucotrol) 5 mg PO BIDAC [facility] Stop: 01/29/17 07:29 Last Admin: 12/08/16 06:34 Dose: 5 mg Insulin Aspart (Novolog Insulin Sliding Scale) 0 units SUBQ ACHS [facility] PRN Reason: Protocol Stop: 01/28/17 20:59 Last Admin: 12/08/16 11:51 Dose: Not Given Insulin Detemir (Levemir Insulin) 23 units SUBQ DAILY [facility] Stop: 01/29/17 08:59 Last Admin: 12/08/16 09:30 Dose: Not Given Lisinopril (Zestril) 10 mg PO DAILY [facility] Stop: 01/30/17 08:59 Last Admin: 12/08/16 09:30 Dose: Not Given Lorazepam (Ativan) 0.5 mg PO Q4HR PRN; Protocol PRN Reason: Agitation Stop: 12/29/16 16:37 Last Admin: 12/02/16 20:29 Dose: 0.5 mg Magnesium Hydroxide (Milk Of Magnesia) 30 ml PO DAILY PRN PRN Reason: Constipation Stop: 01/30/17 08:59 Memantine (Namenda) 5 mg PO DAILY [facility] Stop: 02/01/17 08:59 Last Admin: 12/08/16 08:42 Dose: 5 mg Metformin HCl (Glucophage) 1,000 mg PO BID [facility] Stop: 01/28/17 19:14 Last Admin: 12/08/16 08:41 Dose: 1,000 mg Simvastatin (Zocor) 10 mg PO HS [facility] PRN Reason: Protocol Stop: 01/28/17 20:59 Last Admin: 12/07/16 20:57 Dose: 10 mg - Procedures Procedures: Procedures Procedure Code Date OTHER GROUP THERAPY 94.44 12/24/14 Internal Medicine Assmt/Plan - Assessment Assessment: 1.DM. 2.DEMENTIA. 3.DJD. - Plan Plan: CONTINUE ON CURRENT MEDICATION AND DIET. Nutritional Asmnt/Malnutr-PDOC - Dietary Evaluation Malnutrition Findings (Please click <Entered> for more info): Nutritional Asmnt/Malnutrition Start: 11/30/16 14: 06 Text: Status: Complete Freq: Document 11/30/16 14:06 GSUN (Rec: 11/30/16 14:28 MONIQUE [email or web address]) Nutritional Asmnt/Malnutrition Patient General Information Nutritional Screening High Risk Screening Diagnosis Major depression Pertinent Medical Hx/Surgical Hx ER: HTN, arthritis, peripheral vascular disease, psychosis, dementia Subjective Information 71 year old male. Spoke to pt sitting on edge of bed, able to ambulate. Pt was pleasant, however a poor historian, forgetful and slightly confused, not suitable for edu due to this, briefly explained [facility] diet. Pt stated usually good appetite, but does not remember if he had breakfast. Confirmed with FNS, pt did have breakfast. Pt reported UBW 130lb, pt appeared overall thin, unable to completep hysica lassessment due to clothing, moderate to eseve wasting to arms, protruding elbows. Pt was excited to calibrate bedscale and obtain CBW, but then forgot what he was doing half way. Observed pt scratching wounds on elbows. Teeth intact. 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 Estimated Nutritional Goals Calories/Kcals/Kg UBW/IBW 130lb/59.1kg Kcals Calculated 1478-1773kcal (25-30kcal/kg) Protein Calculated 59g (1g/kg) Fluid: ml 1478-1773ml (1ml/kcal) Nutritional Problem 1. Problem Problem Altered nutrition related laboratory values related to Etiology DM aeb Signs/Symptoms: glucose 278H, A1c 8.1 Intervention/Recommendation Comments 1. Recommend [id number] to promote glycemic control. Expected Outcomes/Goals Expected Outcomes/Goals 1. PO intake to meet at least 75% fo estimated nutritional needs.
[2016-12-09] MEDS: INSULIN ASPART SLIDING SCALE 100 UNITS/ML UNIT SUBQ SCH ×3 (06:34→21:00)
[2016-12-09] MEDS: Aspirin 81mg Chewable Tab PO SCH (08:49)
[2016-12-09] MEDS: Ferrous Sulfate 325 MG TAB PO SCH (08:50)
[2016-12-09] MEDS: Multivitamin w/ Minerals Tab PO SCH (08:50)
[2016-12-09] MEDS: Insulin Detemir 100 units/mL 10mL Vial SUBQ SCH (12:07)
--- NOTE | 2016-12-09 12:46 | Internal Medicine Prog Note ---
Internal Medicine Subjective - Subjective Service Date: 12/09/16 Patient seen and examined:: without staff Patient is:: awake, in bed, denies any new complaints Per staff patient has:: no adverse event, eating well, confused Internal Medicine Objective - Results Result Diagrams: 11/29/16 14:06 11/29/16 14:06 Recent Labs: Laboratory Last Values WBC 9.7 Th/cmm (4.8-10.8) 11/29/16 14:06 RBC 3.71 Mil/cmm (3.80-5.80) L 11/29/16 14:06 Hgb 10.4 gm/dL (12.6-17.4) L 11/29/16 14:06 Hct 31.3 % (39.0-49.0) L 11/29/16 14:06 MCV 84.5 fl (80-99) 11/29/16 14:06 MCH 28.1 pg (27.0-31.0) 11/29/16 14:06 MCHC Differential 33.3 pg (28.0-36.0) 11/29/16 14:06 RDW 14.4 % (11.5-20.0) 11/29/16 14:06 Plt Count 221 Th/cmm (150-400) 11/29/16 14:06 MPV 9.6 fl 11/29/16 14:06 Neutrophils % 72.8 % (40.0-80.0) 11/29/16 14:06 Lymphocytes % 14.9 % (20.0-50.0) L 11/29/16 14:06 Monocytes % 7.3 % (2.0-10.0) 11/29/16 14:06 Eosinophils % 4.3 % (0.0-5.0) 11/29/16 14:06 Basophils % 0.7 % (0.0-2.0) 11/29/16 14:06 Sodium 136 mEq/L (136-145) 11/29/16 14:06 Potassium 3.9 mEq/L (3.5-5.1) 11/29/16 14:06 Chloride 107 mEq/L (98-107) 11/29/16 14:06 Carbon Dioxide 26.0 mEq/L (21.0-31.0) 11/29/16 14:06 Anion Gap 6.9 (7.0-16.0) L 11/29/16 14:06 BUN 29 mg/dL (7-25) H 11/29/16 14:06 Creatinine 1.0 mg/dL (0.7-1.3) 11/29/16 14:06 Est GFR ( Amer) TNP 11/29/16 14:06 Est GFR (Non-Af Amer) TNP 11/29/16 14:06 BUN/Creatinine Ratio 29.0 11/29/16 14:06 Glucose 278 mg/dL (70-105) H 11/29/16 14:06 POC Glucose 365 MG/DL (70 - 105) H 12/09/16 11:39 Hemoglobin A1c % 8.1 % (4.0-6.0) H 11/29/16 14:06 Calcium 9.7 mg/dL (8.6-10.3) 11/29/16 14:06 Total Bilirubin 0.3 mg/dL (0.3-1.0) 11/29/16 14:06 AST 20 U/L (13-39) 11/29/16 14:06 ALT 16 U/L (7-52) 11/29/16 14:06 Alkaline Phosphatase 91 U/L (34-104) 11/29/16 14:06 Total Protein 7.3 gm/dL (6.0-8.3) 11/29/16 14:06 Albumin 4.0 gm/dL (4.2-5.5) L 11/29/16 14:06 Globulin 3.3 gm/dL 11/29/16 14:06 Albumin/Globulin Ratio 1.2 (1.0-1.8) 11/29/16 14:06 TSH 0.73 uIU/ml (0.34-5.60) 11/29/16 14:06 RPR NONREACTIVE (NONREACTIVE) 11/29/16 14:06 - Physical Exam Vitals and I&O: Vital Signs Temp 97.2 F 12/09/16 06:32 Pulse 50 12/09/16 09:40 Resp 20 12/09/16 06:32 BP 124/51 12/09/16 09:40 Pulse Ox 98 12/09/16 06:32 Intake & Output 12/08/16 12/09/16 12/09/16 18:59 06:59 18:59 Intake Total 960 120 Balance 960 120 Intake: Oral 960 120 Other: # Voids 3 3 # Bowel Movements 1 Active Medications: Current Medications Acetaminophen (Tylenol) 650 mg PO Q4HR PRN PRN Reason: Mild Pain / Temp above 100 Stop: 01/28/17 16:37 Al Hydrox/Mg Hydrox/Simethicone (Maalox) 30 ml PO Q4HR PRN PRN Reason: GI DISTRESS Stop: 01/28/17 16:37 Amlodipine Besylate (Norvasc) 10 mg PO DAILY [facility] Stop: 01/29/17 08:59 Last Admin: 12/09/16 09:40 Dose: Not Given Ascorbic Acid (Vitamin C) 500 mg PO DAILY [facility] Stop: 01/30/17 08:59 Last Admin: 12/09/16 08:49 Dose: 500 mg Aspirin (Aspirin Chewable) 81 mg PO DAILY [facility] Stop: 01/29/17 08:59 Last Admin: 12/09/16 08:49 Dose: 81 mg Docusate Sodium (Colace) 100 mg PO BID [facility] Stop: 01/29/17 08:59 Last Admin: 12/09/16 08:50 Dose: 100 mg Donepezil HCl (Aricept) 10 mg PO HS [facility] Stop: 01/28/17 20:59 Last Admin: 12/08/16 20:54 Dose: 10 mg Escitalopram Oxalate (Lexapro) 10 mg PO DAILY [facility] PRN Reason: Protocol Stop: 02/01/17 08:59 Last Admin: 12/09/16 08:50 Dose: 10 mg Famotidine (Pepcid) 20 mg PO DAILY [facility] Stop: 01/29/17 08:59 Last Admin: 12/09/16 08:50 Dose: 20 mg Ferrous Sulfate (Iron) 325 mg PO DAILY [facility] Stop: 01/30/17 08:59 Last Admin: 12/09/16 08:50 Dose: 325 mg Glipizide (Glucotrol) 5 mg PO BIDAC [facility] Stop: 01/29/17 07:29 Last Admin: 12/09/16 06:34 Dose: 5 mg Insulin Aspart (Novolog Insulin Sliding Scale) 0 units SUBQ ACHS [facility] PRN Reason: Protocol Stop: 01/28/17 20:59 Last Admin: 12/09/16 11:47 Dose: 8 units Insulin Detemir (Levemir Insulin) 23 units SUBQ DAILY [facility] Stop: 01/29/17 08:59 Last Admin: 12/09/16 12:07 Dose: 15 units Lisinopril (Zestril) 10 mg PO DAILY [facility] Stop: 01/30/17 08:59 Last Admin: 12/09/16 09:40 Dose: Not Given Lorazepam (Ativan) 0.5 mg PO Q4HR PRN; Protocol PRN Reason: Agitation Stop: 12/29/16 16:37 Last Admin: 12/02/16 20:29 Dose: 0.5 mg Magnesium Hydroxide (Milk Of Magnesia) 30 ml PO DAILY PRN PRN Reason: Constipation Stop: 01/30/17 08:59 Memantine (Namenda) 5 mg PO DAILY [facility] Stop: 02/01/17 08:59 Last Admin: 12/09/16 08:50 Dose: 5 mg Metformin HCl (Glucophage) 1,000 mg PO BID [facility] Stop: 01/28/17 19:14 Last Admin: 12/09/16 08:50 Dose: 1,000 mg Simvastatin (Zocor) 10 mg PO HS [facility] PRN Reason: Protocol Stop: 01/28/17 20:59 Last Admin: 12/08/16 20:54 Dose: 10 mg - Procedures Procedures: Procedures Procedure Code Date OTHER GROUP THERAPY 94.44 12/24/14 Internal Medicine Assmt/Plan - Assessment Assessment: 1.DM. 2.DEMENTIA. 3.DJD. - Plan Plan: CONTINUE ON CURRENT MEDICATION AND DIET. Nutritional Asmnt/Malnutr-PDOC - Dietary Evaluation Malnutrition Findings (Please click <Entered> for more info): Nutritional Asmnt/Malnutrition Start: 11/30/16 14: 06 Text: Status: Complete Freq: Document 11/30/16 14:06 GSUN (Rec: 11/30/16 14:28 GSUN [email or web address]) Nutritional Asmnt/Malnutrition Patient General Information Nutritional Screening High Risk Screening Diagnosis Major depression Pertinent Medical Hx/Surgical Hx ER: HTN, arthritis, peripheral vascular disease, psychosis, dementia Subjective Information 71 year old male. Spoke to pt sitting on edge of bed, able to ambulate. Pt was pleasant, however a poor historian, forgetful and slightly confused, not suitable for edu due to this, briefly explained [facility] diet. Pt stated usually good appetite, but does not remember if he had breakfast. Confirmed with FNS, pt did have breakfast. Pt reported UBW 130lb, pt appeared overall thin, unable to completep hysica lassessment due to clothing, moderate to eseve wasting to arms, protruding elbows. Pt was excited to calibrate bedscale and obtain CBW, but then forgot what he was doing half way. Observed pt scratching wounds on elbows. Teeth intact. Current Diet Order/ Nutrition Support PATRICIA, [address] Pertinent Medications Colace, Glucotrol, Novolog, Levemir, Glucophage, Theragran Pertinent Labs 11/29: glucose 278H, A1c 8.1 Nutritional Hx/Data Height 1.63 m Height (Calculated Centimeters) 162.6 Current Weight (lbs) 58.967 kg Weight (Calculated Kilograms) 59.0 Weight (Calculated Grams) 13760.0 Usual body Weight (lbs) 130 [place] Body Weight 130 Weight Status Approriate GI Symptoms Usual diet at home [place]: regular, PATRICIA, [facility] Skin Integrity/Comment: Marko Miranda. jailkeeper: skin intact. Estimated Nutritional Goals Calories/Kcals/Kg UBW/IBW 130lb/59.1kg Kcals Calculated 1478-1773kcal (25-30kcal/kg) Protein Calculated 59g (1g/kg) Fluid: ml 1478-1773ml (1ml/kcal) Nutritional Problem 1. Problem Problem Altered nutrition related laboratory values related to Etiology DM aeb Signs/Symptoms: glucose 278H, A1c 8.1 Intervention/Recommendation Comments 1. Recommend [id number] to promote glycemic control. Expected Outcomes/Goals Expected Outcomes/Goals 1. PO intake to meet at least 75% fo estimated nutritional needs.
--- NOTE | 2016-12-09 13:09 | Progress Notes ---
DATE: 12/09/2016 SUBJECTIVE: The patient seen, chart reviewed, discussed with staff. The patient remains confused, talking to himself, wandering around, disoriented, intrusive at times, resistive to care, needing prompting for ADLs, prompting for eating, nonsensical, not answering questions appropriately. No plans for basic food, clothing and alf. ASSESSMENT: The patient remains symptomatic, talking to himself, wandering behaviors, intrusive behaviors, confused. PLAN: Continue to monitor. Given the patient's continued symptoms, he is not safe for discharge at this time. Consider titration of Namenda and Aricept. JOB# [id number]
[2016-12-10] MEDS: INSULIN ASPART SLIDING SCALE 100 UNITS/ML UNIT SUBQ SCH ×4 (06:39→21:18)
[2016-12-10] MEDS: Aspirin 81mg Chewable Tab PO SCH (08:23)
[2016-12-10] MEDS: Multivitamin w/ Minerals Tab PO SCH (08:23)
[2016-12-10] MEDS: Ferrous Sulfate 325 MG TAB PO SCH (08:23)
[2016-12-10] MEDS: Insulin Detemir 100 units/mL 10mL Vial SUBQ SCH (11:49)
--- NOTE | 2016-12-10 16:15 | Internal Medicine Prog Note ---
Internal Medicine Subjective - Subjective Service Date: 12/10/16 Patient seen and examined:: without staff Patient is:: awake, in bed, denies any new complaints Per staff patient has:: no adverse event, eating well, confused Internal Medicine Objective - Results Result Diagrams: 11/29/16 14:06 11/29/16 14:06 Recent Labs: Laboratory Last Values WBC 9.7 Th/cmm (4.8-10.8) 11/29/16 14:06 RBC 3.71 Mil/cmm (3.80-5.80) L 11/29/16 14:06 Hgb 10.4 gm/dL (12.6-17.4) L 11/29/16 14:06 Hct 31.3 % (39.0-49.0) L 11/29/16 14:06 MCV 84.5 fl (80-99) 11/29/16 14:06 MCH 28.1 pg (27.0-31.0) 11/29/16 14:06 MCHC Differential 33.3 pg (28.0-36.0) 11/29/16 14:06 RDW 14.4 % (11.5-20.0) 11/29/16 14:06 Plt Count 221 Th/cmm (150-400) 11/29/16 14:06 MPV 9.6 fl 11/29/16 14:06 Neutrophils % 72.8 % (40.0-80.0) 11/29/16 14:06 Lymphocytes % 14.9 % (20.0-50.0) L 11/29/16 14:06 Monocytes % 7.3 % (2.0-10.0) 11/29/16 14:06 Eosinophils % 4.3 % (0.0-5.0) 11/29/16 14:06 Basophils % 0.7 % (0.0-2.0) 11/29/16 14:06 Sodium 136 mEq/L (136-145) 11/29/16 14:06 Potassium 3.9 mEq/L (3.5-5.1) 11/29/16 14:06 Chloride 107 mEq/L (98-107) 11/29/16 14:06 Carbon Dioxide 26.0 mEq/L (21.0-31.0) 11/29/16 14:06 Anion Gap 6.9 (7.0-16.0) L 11/29/16 14:06 BUN 29 mg/dL (7-25) H 11/29/16 14:06 Creatinine 1.0 mg/dL (0.7-1.3) 11/29/16 14:06 Est GFR ( Amer) TNP 11/29/16 14:06 Est GFR (Non-Af Amer) TNP 11/29/16 14:06 BUN/Creatinine Ratio 29.0 11/29/16 14:06 Glucose 278 mg/dL (70-105) H 11/29/16 14:06 POC Glucose 268 MG/DL (70 - 105) H 12/10/16 11:11 Hemoglobin A1c % 8.1 % (4.0-6.0) H 11/29/16 14:06 Calcium 9.7 mg/dL (8.6-10.3) 11/29/16 14:06 Total Bilirubin 0.3 mg/dL (0.3-1.0) 11/29/16 14:06 AST 20 U/L (13-39) 11/29/16 14:06 ALT 16 U/L (7-52) 11/29/16 14:06 Alkaline Phosphatase 91 U/L (34-104) 11/29/16 14:06 Total Protein 7.3 gm/dL (6.0-8.3) 11/29/16 14:06 Albumin 4.0 gm/dL (4.2-5.5) L 11/29/16 14:06 Globulin 3.3 gm/dL 11/29/16 14:06 Albumin/Globulin Ratio 1.2 (1.0-1.8) 11/29/16 14:06 TSH 0.73 uIU/ml (0.34-5.60) 11/29/16 14:06 RPR NONREACTIVE (NONREACTIVE) 11/29/16 14:06 - Physical Exam Vitals and I&O: Vital Signs Temp 98.2 F 12/10/16 14:00 Pulse 60 12/10/16 14:00 Resp 20 12/10/16 14:00 BP 107/55 12/10/16 14:00 Pulse Ox 96 12/10/16 14:00 Intake & Output 12/09/16 12/10/16 12/10/16 18:59 06:59 18:59 Intake Total 700 120 Balance 700 120 Intake: Oral 700 120 Other: # Voids 3 3 # Bowel Movements 1 Active Medications: Current Medications Acetaminophen (Tylenol) 650 mg PO Q4HR PRN PRN Reason: Mild Pain / Temp above 100 Stop: 01/28/17 16:37 Al Hydrox/Mg Hydrox/Simethicone (Maalox) 30 ml PO Q4HR PRN PRN Reason: GI DISTRESS Stop: 01/28/17 16:37 Amlodipine Besylate (Norvasc) 10 mg PO DAILY [facility] Stop: 01/29/17 08:59 Last Admin: 12/10/16 08:24 Dose: 10 mg Ascorbic Acid (Vitamin C) 500 mg PO DAILY [facility] Stop: 01/30/17 08:59 Last Admin: 12/10/16 08:23 Dose: 500 mg Aspirin (Aspirin Chewable) 81 mg PO DAILY [facility] Stop: 01/29/17 08:59 Last Admin: 12/10/16 08:23 Dose: 81 mg Docusate Sodium (Colace) 100 mg PO BID [facility] Stop: 01/29/17 08:59 Last Admin: 12/10/16 08:29 Dose: 100 mg Donepezil HCl (Aricept) 10 mg PO HS [facility] Stop: 01/28/17 20:59 Last Admin: 12/09/16 20:31 Dose: 10 mg Escitalopram Oxalate (Lexapro) 10 mg PO DAILY [facility] PRN Reason: Protocol Stop: 02/01/17 08:59 Last Admin: 12/10/16 08:25 Dose: 10 mg Famotidine (Pepcid) 20 mg PO DAILY [facility] Stop: 01/29/17 08:59 Last Admin: 12/10/16 08:23 Dose: 20 mg Ferrous Sulfate (Iron) 325 mg PO DAILY [facility] Stop: 01/30/17 08:59 Last Admin: 12/10/16 08:23 Dose: 325 mg Glipizide (Glucotrol) 5 mg PO BIDAC [facility] Stop: 01/29/17 07:29 Last Admin: 12/10/16 06:45 Dose: 5 mg Insulin Aspart (Novolog Insulin Sliding Scale) 0 units SUBQ ACHS [facility] PRN Reason: Protocol Stop: 01/28/17 20:59 Last Admin: 12/10/16 11:42 Dose: 4 units Insulin Detemir (Levemir Insulin) 23 units SUBQ DAILY [facility] Stop: 01/29/17 08:59 Last Admin: 12/10/16 11:49 Dose: 23 units Lisinopril (Zestril) 10 mg PO DAILY [facility] Stop: 01/30/17 08:59 Last Admin: 12/10/16 08:24 Dose: 10 mg Lorazepam (Ativan) 0.5 mg PO Q4HR PRN; Protocol PRN Reason: Agitation Stop: 12/29/16 16:37 Last Admin: 12/02/16 20:29 Dose: 0.5 mg Magnesium Hydroxide (Milk Of Magnesia) 30 ml PO DAILY PRN PRN Reason: Constipation Stop: 01/30/17 08:59 Memantine (Namenda) 5 mg PO BID [facility] Stop: 02/08/17 16:59 Metformin HCl (Glucophage) 1,000 mg PO BID [facility] Stop: 01/28/17 19:14 Last Admin: 12/10/16 08:26 Dose: 1,000 mg Risperidone (Risperdal) 0.5 mg PO BID [facility] PRN Reason: Protocol Stop: 02/08/17 16:59 Simvastatin (Zocor) 10 mg PO HS [facility] PRN Reason: Protocol Stop: 01/28/17 20:59 Last Admin: 12/09/16 20:31 Dose: 10 mg - Procedures Procedures: Procedures Procedure Code Date OTHER GROUP THERAPY 94.44 12/24/14 Internal Medicine Assmt/Plan - Assessment Assessment: 1.DM. 2.DEMENTIA. 3.DJD. - Plan Plan: CONTINUE ON CURRENT MEDICATION AND DIET. Nutritional Asmnt/Malnutr-PDOC - Dietary Evaluation Malnutrition Findings (Please click <Entered> for more info): Nutritional Asmnt/Malnutrition Start: 11/30/16 14: 06 Text: Status: Complete Freq: Document 11/30/16 14:06 GSUN (Rec: 11/30/16 14:28 MONIQUE [email or web address]) Nutritional Asmnt/Malnutrition Patient General Information Nutritional Screening High Risk Screening Diagnosis Major depression Pertinent Medical Hx/Surgical Hx ER: HTN, arthritis, peripheral vascular disease, psychosis, dementia Subjective Information 71 year old male. Spoke to pt sitting on edge of bed, able to ambulate. Pt was pleasant, however a poor historian, forgetful and slightly confused, not suitable for edu due to this, briefly explained [facility] diet. Pt stated usually good appetite, but does not remember if he had breakfast. Confirmed with FNS, pt did have breakfast. Pt reported UBW 130lb, pt appeared overall thin, unable to completep hysica lassessment due to clothing, moderate to eseve wasting to arms, protruding elbows. Pt was excited to calibrate bedscale and obtain CBW, but then forgot what he was doing half way. Observed pt scratching wounds on elbows. Teeth intact. Current Diet Order/ Nutrition Support PATRICIA, [address] Pertinent Medications Colace, Glucotrol, Novolog, Levemir, Glucophage, Theragran Pertinent Labs 11/29: glucose 278H, A1c 8.1 Nutritional Hx/Data Height 1.63 m Height (Calculated Centimeters) 162.6 Current Weight (lbs) 58.967 kg Weight (Calculated Kilograms) 59.0 Weight (Calculated Grams) 20917.0 Usual body Weight (lbs) 130 [place] Body Weight 130 Weight Status Approriate GI Symptoms Usual diet at home [place]: regular, PATRICIA, [facility] Skin Integrity/Comment: Marko Miranda. 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 Estimated Nutritional Goals Calories/Kcals/Kg UBW/IBW 130lb/59.1kg Kcals Calculated 1478-1773kcal (25-30kcal/kg) Protein Calculated 59g (1g/kg) Fluid: ml 1478-1773ml (1ml/kcal) Nutritional Problem 1. Problem Problem Altered nutrition related laboratory values related to Etiology DM aeb Signs/Symptoms: glucose 278H, A1c 8.1 Intervention/Recommendation Comments 1. Recommend [id number] to promote glycemic control. Expected Outcomes/Goals Expected Outcomes/Goals 1. PO intake to meet at least 75% fo estimated nutritional needs.
--- NOTE | 2016-12-11 00:37 | Progress Notes ---
DATE: 12/10/2016 Case was discussed with staff of the patient, reviewed records. The patient continues to be internally preoccupied. Continues to have poor insight. Continues to be unable to make safe plan for his self-care. Continues to need redirection. He is sleeping better, eating better. Continues to be confused. I will be increasing his Namenda to 10 mg twice a day to help with his confusion and memory problems. ____ I will be initiating Risperdal to him and discussed side effects. The patient was started on Risperdal 0.5 mg twice a day and continue the patient in group therapy, milieu therapy, adjust the medication as needed. JOB# [id number]
[2016-12-11] MEDS: INSULIN ASPART SLIDING SCALE 100 UNITS/ML UNIT SUBQ SCH ×4 (06:46→21:00)
[2016-12-11] MEDS: Aspirin 81mg Chewable Tab PO SCH (08:49)
[2016-12-11] MEDS: Ferrous Sulfate 325 MG TAB PO SCH (08:50)
[2016-12-11] MEDS: Multivitamin w/ Minerals Tab PO SCH (08:50)
[2016-12-11] MEDS: Insulin Detemir 100 units/mL 10mL Vial SUBQ SCH (11:19)
--- NOTE | 2016-12-11 21:07 | Internal Medicine Prog Note ---
Internal Medicine Subjective - Subjective Service Date: 12/11/16 Patient seen and examined:: without staff Patient is:: awake, in bed, denies any new complaints Per staff patient has:: no adverse event, eating well, confused Internal Medicine Objective - Results Result Diagrams: 11/29/16 14:06 11/29/16 14:06 Recent Labs: Laboratory Last Values WBC 9.7 Th/cmm (4.8-10.8) 11/29/16 14:06 RBC 3.71 Mil/cmm (3.80-5.80) L 11/29/16 14:06 Hgb 10.4 gm/dL (12.6-17.4) L 11/29/16 14:06 Hct 31.3 % (39.0-49.0) L 11/29/16 14:06 MCV 84.5 fl (80-99) 11/29/16 14:06 MCH 28.1 pg (27.0-31.0) 11/29/16 14:06 MCHC Differential 33.3 pg (28.0-36.0) 11/29/16 14:06 RDW 14.4 % (11.5-20.0) 11/29/16 14:06 Plt Count 221 Th/cmm (150-400) 11/29/16 14:06 MPV 9.6 fl 11/29/16 14:06 Neutrophils % 72.8 % (40.0-80.0) 11/29/16 14:06 Lymphocytes % 14.9 % (20.0-50.0) L 11/29/16 14:06 Monocytes % 7.3 % (2.0-10.0) 11/29/16 14:06 Eosinophils % 4.3 % (0.0-5.0) 11/29/16 14:06 Basophils % 0.7 % (0.0-2.0) 11/29/16 14:06 Sodium 136 mEq/L (136-145) 11/29/16 14:06 Potassium 3.9 mEq/L (3.5-5.1) 11/29/16 14:06 Chloride 107 mEq/L (98-107) 11/29/16 14:06 Carbon Dioxide 26.0 mEq/L (21.0-31.0) 11/29/16 14:06 Anion Gap 6.9 (7.0-16.0) L 11/29/16 14:06 BUN 29 mg/dL (7-25) H 11/29/16 14:06 Creatinine 1.0 mg/dL (0.7-1.3) 11/29/16 14:06 Est GFR ( Amer) TNP 11/29/16 14:06 Est GFR (Non-Af Amer) TNP 11/29/16 14:06 BUN/Creatinine Ratio 29.0 11/29/16 14:06 Glucose 278 mg/dL (70-105) H 11/29/16 14:06 POC Glucose 107 MG/DL (70 - 105) H 12/11/16 20:01 Hemoglobin A1c % 8.1 % (4.0-6.0) H 11/29/16 14:06 Calcium 9.7 mg/dL (8.6-10.3) 11/29/16 14:06 Total Bilirubin 0.3 mg/dL (0.3-1.0) 11/29/16 14:06 AST 20 U/L (13-39) 11/29/16 14:06 ALT 16 U/L (7-52) 11/29/16 14:06 Alkaline Phosphatase 91 U/L (34-104) 11/29/16 14:06 Total Protein 7.3 gm/dL (6.0-8.3) 11/29/16 14:06 Albumin 4.0 gm/dL (4.2-5.5) L 11/29/16 14:06 Globulin 3.3 gm/dL 11/29/16 14:06 Albumin/Globulin Ratio 1.2 (1.0-1.8) 11/29/16 14:06 TSH 0.73 uIU/ml (0.34-5.60) 11/29/16 14:06 RPR NONREACTIVE (NONREACTIVE) 11/29/16 14:06 - Physical Exam Vitals and I&O: Vital Signs Temp 98.0 F 12/11/16 19:55 Pulse 64 12/11/16 19:55 Resp 20 12/11/16 19:55 BP 105/51 12/11/16 19:55 Pulse Ox 97 12/11/16 15:38 Intake & Output 12/11/16 12/11/16 12/12/16 06:59 18:59 06:59 Intake Total 60 Balance 60 Intake: Oral 60 Other: # Voids 1 # Bowel Movements 0 Active Medications: Current Medications Acetaminophen (Tylenol) 650 mg PO Q4HR PRN PRN Reason: Mild Pain / Temp above 100 Stop: 01/28/17 16:37 Al Hydrox/Mg Hydrox/Simethicone (Maalox) 30 ml PO Q4HR PRN PRN Reason: GI DISTRESS Stop: 01/28/17 16:37 Amlodipine Besylate (Norvasc) 10 mg PO DAILY [facility] Stop: 01/29/17 08:59 Last Admin: 12/11/16 08:48 Dose: Not Given Ascorbic Acid (Vitamin C) 500 mg PO DAILY [facility] Stop: 01/30/17 08:59 Last Admin: 12/11/16 08:47 Dose: 500 mg Aspirin (Aspirin Chewable) 81 mg PO DAILY [facility] Stop: 01/29/17 08:59 Last Admin: 12/11/16 08:49 Dose: 81 mg Docusate Sodium (Colace) 100 mg PO BID [facility] Stop: 01/29/17 08:59 Last Admin: 12/11/16 16:20 Dose: 100 mg Donepezil HCl (Aricept) 10 mg PO HS [facility] Stop: 01/28/17 20:59 Last Admin: 12/11/16 20:47 Dose: 10 mg Escitalopram Oxalate (Lexapro) 10 mg PO DAILY [facility] PRN Reason: Protocol Stop: 02/01/17 08:59 Last Admin: 12/11/16 08:49 Dose: 10 mg Famotidine (Pepcid) 20 mg PO DAILY [facility] Stop: 01/29/17 08:59 Last Admin: 12/11/16 08:50 Dose: 20 mg Ferrous Sulfate (Iron) 325 mg PO DAILY [facility] Stop: 01/30/17 08:59 Last Admin: 12/11/16 08:50 Dose: 325 mg Glipizide (Glucotrol) 5 mg PO BIDAC [facility] Stop: 01/29/17 07:29 Last Admin: 12/11/16 16:21 Dose: Not Given Insulin Aspart (Novolog Insulin Sliding Scale) 0 units SUBQ ACHS [facility] PRN Reason: Protocol Stop: 01/28/17 20:59 Last Admin: 12/11/16 16:21 Dose: Not Given Insulin Detemir (Levemir Insulin) 23 units SUBQ DAILY [facility] Stop: 01/29/17 08:59 Last Admin: 12/11/16 11:19 Dose: 23 units Lisinopril (Zestril) 10 mg PO DAILY [facility] Stop: 01/30/17 08:59 Last Admin: 12/11/16 08:50 Dose: Not Given Lorazepam (Ativan) 0.5 mg PO Q4HR PRN; Protocol PRN Reason: Agitation Stop: 12/29/16 16:37 Last Admin: 12/02/16 20:29 Dose: 0.5 mg Magnesium Hydroxide (Milk Of Magnesia) 30 ml PO DAILY PRN PRN Reason: Constipation Stop: 01/30/17 08:59 Memantine (Namenda) 5 mg PO BID [facility] Stop: 02/08/17 16:59 Last Admin: 12/11/16 16:20 Dose: 5 mg Metformin HCl (Glucophage) 1,000 mg PO BID [facility] Stop: 01/28/17 19:14 Last Admin: 12/11/16 16:22 Dose: Not Given Risperidone (Risperdal) 0.5 mg PO BID [facility] PRN Reason: Protocol Stop: 02/08/17 16:59 Last Admin: 12/11/16 16:19 Dose: 0.5 mg Simvastatin (Zocor) 10 mg PO HS [facility] PRN Reason: Protocol Stop: 01/28/17 20:59 Last Admin: 12/11/16 20:47 Dose: 10 mg - Procedures Procedures: Procedures Procedure Code Date OTHER GROUP THERAPY 94.44 12/24/14 Internal Medicine Assmt/Plan - Assessment Assessment: 1.DM. 2.DEMENTIA. 3.DJD. - Plan Plan: CONTINUE ON CURRENT MEDICATION AND DIET. Nutritional Asmnt/Malnutr-PDOC - Dietary Evaluation Malnutrition Findings (Please click <Entered> for more info): Nutritional Asmnt/Malnutrition Start: 11/30/16 14: 06 Text: Status: Complete Freq: Document 11/30/16 14:06 GSUN (Rec: 11/30/16 14:28 [id number] [id number]) Nutritional Asmnt/Malnutrition Patient General Information Nutritional Screening High Risk Screening Diagnosis Major depression Pertinent Medical Hx/Surgical Hx ER: HTN, arthritis, peripheral vascular disease, psychosis, dementia Subjective Information 71 year old male. Spoke to pt sitting on edge of bed, able to ambulate. Pt was pleasant, however a poor historian, forgetful and slightly confused, not suitable for [facility] due to this, briefly explained [facility] diet. Pt stated usually good appetite, but does not remember if he had breakfast. Confirmed with FNS, pt did have breakfast. Pt reported UBW 130lb, pt appeared overall thin, unable to completep hysica lassessment due to clothing, moderate to eseve wasting to arms, protruding elbows. Pt was excited to calibrate bedscale and obtain CBW, but then forgot what he was doing half way. Observed pt scratching wounds on elbows. Teeth intact. Current Diet Order/ Nutrition Support PATRICIA, [id number] Pertinent Medications Colace, Glucotrol, Novolog, Levemir, Glucophage, Theragran Pertinent Labs 11/29: glucose 278H, A1c 8.1 Nutritional Hx/Data Height 1.63 m Height (Calculated Centimeters) 162.6 Current Weight (lbs) 58.967 kg Weight (Calculated Kilograms) 59.0 Weight (Calculated Grams) 04943.0 Usual body Weight (lbs) 130 [place] Body Weight 130 Weight Status Approriate GI Symptoms Usual diet at home [place]: regular, PATRICIA, [facility] Skin Integrity/Comment: Marko Miranda. 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 Estimated Nutritional Goals Calories/Kcals/Kg UBW/IBW 130lb/59.1kg Kcals Calculated 1478-1773kcal (25-30kcal/kg) Protein Calculated 59g (1g/kg) Fluid: ml 1478-1773ml (1ml/kcal) Nutritional Problem 1. Problem Problem Altered nutrition related laboratory values related to Etiology DM aeb Signs/Symptoms: glucose 278H, A1c 8.1 Intervention/Recommendation Comments 1. Recommend [id number] to promote glycemic control. Expected Outcomes/Goals Expected Outcomes/Goals 1. PO intake to meet at least 75% fo estimated nutritional needs.
--- NOTE | 2016-12-11 23:03 | Progress Notes ---
DATE: 12/11/2016 Case was discussed with staff and reviewed records. The patient continues to be confused and internally preoccupied, stays to himself. Continues to be unable to make safe plan for self-care. Continues to be unpredictable, impulsive, and needing redirection. He is compliant with the medication, tolerated the Risperdal. No side effects with the medication. No sedation, no nausea, and no extrapyramidal symptoms. I will continue to work with the patient in group therapy, milieu therapy, and adjust the medication as needed. JOB# [id number]
[2016-12-12] MEDS: INSULIN ASPART SLIDING SCALE 100 UNITS/ML UNIT SUBQ SCH ×4 (06:52→20:46)
[2016-12-12] MEDS: Ferrous Sulfate 325 MG TAB PO SCH (08:21)
[2016-12-12] MEDS: Aspirin 81mg Chewable Tab PO SCH (08:22)
[2016-12-12] MEDS: Multivitamin w/ Minerals Tab PO SCH (08:22)
[2016-12-12] MEDS: Insulin Detemir 100 units/mL 10mL Vial SUBQ SCH (08:36)
--- NOTE | 2016-12-12 12:47 | Progress Notes ---
DATE: 12/12/2016 Case was discussed with staff of the patient, reviewed records. The patient continues to be confused and internally preoccupied. Continues to be unable to make safe plan for self-care. He is unpredictable, impulsive, needing redirection. He looked disheveled, disorganized. Continues to be unable to make safe plan for self-care. He tolerated the Risperdal with no side effects, no sedation, no nausea, no extrapyramidal symptoms. He turned positive for MRSA and he is on Bactroban. TSH within normal range. Chemistry panel with high blood sugar, high BUN and low albumin, the rest within normal range. I will continue to work with the patient in group therapy, milieu therapy, and adjust medications as needed. JOB# [id number]
--- NOTE | 2016-12-12 21:49 | Internal Medicine Prog Note ---
Internal Medicine Subjective - Subjective Service Date: 12/12/16 Patient seen and examined:: without staff Patient is:: awake, in bed, denies any new complaints Per staff patient has:: no adverse event, eating well, confused Internal Medicine Objective - Results Result Diagrams: 11/29/16 14:06 11/29/16 14:06 Recent Labs: Laboratory Last Values WBC 9.7 Th/cmm (4.8-10.8) 11/29/16 14:06 RBC 3.71 Mil/cmm (3.80-5.80) L 11/29/16 14:06 Hgb 10.4 gm/dL (12.6-17.4) L 11/29/16 14:06 Hct 31.3 % (39.0-49.0) L 11/29/16 14:06 MCV 84.5 fl (80-99) 11/29/16 14:06 MCH 28.1 pg (27.0-31.0) 11/29/16 14:06 MCHC Differential 33.3 pg (28.0-36.0) 11/29/16 14:06 RDW 14.4 % (11.5-20.0) 11/29/16 14:06 Plt Count 221 Th/cmm (150-400) 11/29/16 14:06 MPV 9.6 fl 11/29/16 14:06 Neutrophils % 72.8 % (40.0-80.0) 11/29/16 14:06 Lymphocytes % 14.9 % (20.0-50.0) L 11/29/16 14:06 Monocytes % 7.3 % (2.0-10.0) 11/29/16 14:06 Eosinophils % 4.3 % (0.0-5.0) 11/29/16 14:06 Basophils % 0.7 % (0.0-2.0) 11/29/16 14:06 Sodium 136 mEq/L (136-145) 11/29/16 14:06 Potassium 3.9 mEq/L (3.5-5.1) 11/29/16 14:06 Chloride 107 mEq/L (98-107) 11/29/16 14:06 Carbon Dioxide 26.0 mEq/L (21.0-31.0) 11/29/16 14:06 Anion Gap 6.9 (7.0-16.0) L 11/29/16 14:06 BUN 29 mg/dL (7-25) H 11/29/16 14:06 Creatinine 1.0 mg/dL (0.7-1.3) 11/29/16 14:06 Est GFR ( Amer) TNP 11/29/16 14:06 Est GFR (Non-Af Amer) TNP 11/29/16 14:06 BUN/Creatinine Ratio 29.0 11/29/16 14:06 Glucose 278 mg/dL (70-105) H 11/29/16 14:06 POC Glucose 80 MG/DL (70 - 105) 12/12/16 20:42 Hemoglobin A1c % 8.1 % (4.0-6.0) H 11/29/16 14:06 Calcium 9.7 mg/dL (8.6-10.3) 11/29/16 14:06 Total Bilirubin 0.3 mg/dL (0.3-1.0) 11/29/16 14:06 AST 20 U/L (13-39) 11/29/16 14:06 ALT 16 U/L (7-52) 11/29/16 14:06 Alkaline Phosphatase 91 U/L (34-104) 11/29/16 14:06 Total Protein 7.3 gm/dL (6.0-8.3) 11/29/16 14:06 Albumin 4.0 gm/dL (4.2-5.5) L 11/29/16 14:06 Globulin 3.3 gm/dL 11/29/16 14:06 Albumin/Globulin Ratio 1.2 (1.0-1.8) 11/29/16 14:06 TSH 0.73 uIU/ml (0.34-5.60) 11/29/16 14:06 RPR NONREACTIVE (NONREACTIVE) 11/29/16 14:06 - Physical Exam Vitals and I&O: Vital Signs Temp 97.4 F 12/12/16 14:00 Pulse 58 12/12/16 14:00 Resp 20 12/12/16 19:30 BP 100/47 12/12/16 14:00 Pulse Ox 98 12/12/16 14:00 Intake & Output 12/12/16 12/12/16 12/13/16 06:59 18:59 06:59 Intake Total 1200 Balance 1200 Intake: Oral 1200 Other: # Bowel Movements 1 Active Medications: Current Medications Acetaminophen (Tylenol) 650 mg PO Q4HR PRN PRN Reason: Mild Pain / Temp above 100 Stop: 01/28/17 16:37 Al Hydrox/Mg Hydrox/Simethicone (Maalox) 30 ml PO Q4HR PRN PRN Reason: GI DISTRESS Stop: 01/28/17 16:37 Amlodipine Besylate (Norvasc) 10 mg PO DAILY [facility] Stop: 01/29/17 08:59 Last Admin: 12/12/16 08:23 Dose: 10 mg Ascorbic Acid (Vitamin C) 500 mg PO DAILY [facility] Stop: 01/30/17 08:59 Last Admin: 12/12/16 08:22 Dose: 500 mg Aspirin (Aspirin Chewable) 81 mg PO DAILY [facility] Stop: 01/29/17 08:59 Last Admin: 12/12/16 08:22 Dose: 81 mg Docusate Sodium (Colace) 100 mg PO BID [facility] Stop: 01/29/17 08:59 Last Admin: 12/12/16 16:25 Dose: 100 mg Donepezil HCl (Aricept) 10 mg PO HS [facility] Stop: 01/28/17 20:59 Last Admin: 12/12/16 20:36 Dose: 10 mg Escitalopram Oxalate (Lexapro) 10 mg PO DAILY [facility] PRN Reason: Protocol Stop: 02/01/17 08:59 Last Admin: 12/12/16 08:22 Dose: 10 mg Famotidine (Pepcid) 20 mg PO DAILY [facility] Stop: 01/29/17 08:59 Last Admin: 12/12/16 08:22 Dose: 20 mg Ferrous Sulfate (Iron) 325 mg PO DAILY [facility] Stop: 01/30/17 08:59 Last Admin: 12/12/16 08:21 Dose: 325 mg Glipizide (Glucotrol) 5 mg PO BIDAC [facility] Stop: 01/29/17 07:29 Last Admin: 12/12/16 16:26 Dose: 5 mg Insulin Aspart (Novolog Insulin Sliding Scale) 0 units SUBQ ACHS [facility] PRN Reason: Protocol Stop: 01/28/17 20:59 Last Admin: 12/12/16 20:46 Dose: Not Given Insulin Detemir (Levemir Insulin) 23 units SUBQ DAILY [facility] Stop: 01/29/17 08:59 Last Admin: 12/12/16 08:36 Dose: 23 units Lisinopril (Zestril) 10 mg PO DAILY [facility] Stop: 01/30/17 08:59 Last Admin: 12/12/16 08:23 Dose: 10 mg Lorazepam (Ativan) 0.5 mg PO Q4HR PRN; Protocol PRN Reason: Agitation Stop: 12/29/16 16:37 Last Admin: 12/02/16 20:29 Dose: 0.5 mg Magnesium Hydroxide (Milk Of Magnesia) 30 ml PO DAILY [facility] PRN Reason: Constipation Stop: 01/30/17 08:59 Memantine (Namenda) 5 mg PO BID [facility] Stop: 02/08/17 16:59 Last Admin: 12/12/16 16:26 Dose: 5 mg Metformin HCl (Glucophage) 1,000 mg PO BID [facility] Stop: 01/28/17 19:14 Last Admin: 12/12/16 16:26 Dose: 1,000 mg Risperidone (Risperdal) 0.5 mg PO BID [facility] PRN Reason: Protocol Stop: 02/08/17 16:59 Last Admin: 12/12/16 16:26 Dose: 0.5 mg Simvastatin (Zocor) 10 mg PO HS [facility] PRN Reason: Protocol Stop: 01/28/17 20:59 Last Admin: 12/12/16 20:36 Dose: 10 mg - Procedures Procedures: Procedures Procedure Code Date OTHER GROUP THERAPY 94.44 12/24/14 Internal Medicine Assmt/Plan - Assessment Assessment: 1.DM. 2.DEMENTIA. 3.DJD. - Plan Plan: CONTINUE ON CURRENT MEDICATION AND DIET. Nutritional Asmnt/Malnutr-PDOC - Dietary Evaluation Malnutrition Findings (Please click <Entered> for more info): Nutritional Asmnt/Malnutrition Start: 11/30/16 14: 06 Text: Status: Complete Freq: Document 11/30/16 14:06 GSUN (Rec: 11/30/16 14:28 [id number] [id number]) Nutritional Asmnt/Malnutrition Patient General Information Nutritional Screening High Risk Screening Diagnosis Major depression Pertinent Medical Hx/Surgical Hx ER: HTN, arthritis, peripheral vascular disease, psychosis, dementia Subjective Information 71 year old male. Spoke to pt sitting on edge of bed, able to ambulate. Pt was pleasant, however a poor historian, forgetful and slightly confused, not suitable for [facility] due to this, briefly explained [facility] diet. Pt stated usually good appetite, but does not remember if he had breakfast. Confirmed with FNS, pt did have breakfast. Pt reported UBW 130lb, pt appeared overall thin, unable to completep hysica lassessment due to clothing, moderate to eseve wasting to arms, protruding elbows. Pt was excited to calibrate bedscale and obtain CBW, but then forgot what he was doing half way. Observed pt scratching wounds on elbows. Teeth intact. 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 Estimated Nutritional Goals Calories/Kcals/Kg UBW/IBW 130lb/59.1kg Kcals Calculated 1478-1773kcal (25-30kcal/kg) Protein Calculated 59g (1g/kg) Fluid: ml 1478-1773ml (1ml/kcal) Nutritional Problem 1. Problem Problem Altered nutrition related laboratory values related to Etiology DM aeb Signs/Symptoms: glucose 278H, A1c 8.1 Intervention/Recommendation Comments 1. Recommend [id number] to promote glycemic control. Expected Outcomes/Goals Expected Outcomes/Goals 1. PO intake to meet at least 75% fo estimated nutritional needs.
[2016-12-13] MEDS: INSULIN ASPART SLIDING SCALE 100 UNITS/ML UNIT SUBQ SCH ×4 (06:58→20:15)
[2016-12-13] MEDS: Ferrous Sulfate 325 MG TAB PO SCH (08:53)
[2016-12-13] MEDS: Aspirin 81mg Chewable Tab PO SCH (08:55)
[2016-12-13] MEDS: Multivitamin w/ Minerals Tab PO SCH (08:55)
[2016-12-13] MEDS: Insulin Detemir 100 units/mL 10mL Vial SUBQ SCH (09:01)
--- NOTE | 2016-12-13 17:36 | Internal Medicine Prog Note ---
Internal Medicine Subjective - Subjective Service Date: 12/13/16 Patient seen and examined:: with staff (HE IS DOING BETTER,NO CHANGES) Patient is:: awake, in bed, denies any new complaints Per staff patient has:: no adverse event, eating well, confused Internal Medicine Objective - Results Result Diagrams: 11/29/16 14:06 11/29/16 14:06 Recent Labs: Laboratory Last Values WBC 9.7 Th/cmm (4.8-10.8) 11/29/16 14:06 RBC 3.71 Mil/cmm (3.80-5.80) L 11/29/16 14:06 Hgb 10.4 gm/dL (12.6-17.4) L 11/29/16 14:06 Hct 31.3 % (39.0-49.0) L 11/29/16 14:06 MCV 84.5 fl (80-99) 11/29/16 14:06 MCH 28.1 pg (27.0-31.0) 11/29/16 14:06 MCHC Differential 33.3 pg (28.0-36.0) 11/29/16 14:06 RDW 14.4 % (11.5-20.0) 11/29/16 14:06 Plt Count 221 Th/cmm (150-400) 11/29/16 14:06 MPV 9.6 fl 11/29/16 14:06 Neutrophils % 72.8 % (40.0-80.0) 11/29/16 14:06 Lymphocytes % 14.9 % (20.0-50.0) L 11/29/16 14:06 Monocytes % 7.3 % (2.0-10.0) 11/29/16 14:06 Eosinophils % 4.3 % (0.0-5.0) 11/29/16 14:06 Basophils % 0.7 % (0.0-2.0) 11/29/16 14:06 Sodium 136 mEq/L (136-145) 11/29/16 14:06 Potassium 3.9 mEq/L (3.5-5.1) 11/29/16 14:06 Chloride 107 mEq/L (98-107) 11/29/16 14:06 Carbon Dioxide 26.0 mEq/L (21.0-31.0) 11/29/16 14:06 Anion Gap 6.9 (7.0-16.0) L 11/29/16 14:06 BUN 29 mg/dL (7-25) H 11/29/16 14:06 Creatinine 1.0 mg/dL (0.7-1.3) 11/29/16 14:06 Est GFR ( Amer) TNP 11/29/16 14:06 Est GFR (Non-Af Amer) TNP 11/29/16 14:06 BUN/Creatinine Ratio 29.0 11/29/16 14:06 Glucose 278 mg/dL (70-105) H 11/29/16 14:06 POC Glucose 97 MG/DL (70 - 105) 12/13/16 16:31 Hemoglobin A1c % 8.1 % (4.0-6.0) H 11/29/16 14:06 Calcium 9.7 mg/dL (8.6-10.3) 11/29/16 14:06 Total Bilirubin 0.3 mg/dL (0.3-1.0) 11/29/16 14:06 AST 20 U/L (13-39) 11/29/16 14:06 ALT 16 U/L (7-52) 11/29/16 14:06 Alkaline Phosphatase 91 U/L (34-104) 11/29/16 14:06 Total Protein 7.3 gm/dL (6.0-8.3) 11/29/16 14:06 Albumin 4.0 gm/dL (4.2-5.5) L 11/29/16 14:06 Globulin 3.3 gm/dL 11/29/16 14:06 Albumin/Globulin Ratio 1.2 (1.0-1.8) 11/29/16 14:06 TSH 0.73 uIU/ml (0.34-5.60) 11/29/16 14:06 RPR NONREACTIVE (NONREACTIVE) 11/29/16 14:06 - Physical Exam Vitals and I&O: Vital Signs Temp 98.4 F 12/13/16 14:00 Pulse 72 12/13/16 14:00 Resp 20 12/13/16 14:00 BP 136/74 12/13/16 14:00 Pulse Ox 97 12/13/16 14:00 Intake & Output 12/12/16 12/13/1617 18:59 06:59 18:59 Intake Total 1200 Balance 1200 Intake: Oral 1200 Other: # Voids 2 # Bowel Movements 1 Active Medications: Current Medications Acetaminophen (Tylenol) 650 mg PO Q4HR PRN PRN Reason: Mild Pain / Temp above 100 Stop: 01/28/17 16:37 Al Hydrox/Mg Hydrox/Simethicone (Maalox) 30 ml PO Q4HR PRN PRN Reason: GI DISTRESS Stop: 01/28/17 16:37 Amlodipine Besylate (Norvasc) 10 mg PO DAILY [facility] Stop: 01/29/17 08:59 Last Admin: 12/13/16 09:03 Dose: Not Given Ascorbic Acid (Vitamin C) 500 mg PO DAILY [facility] Stop: 01/30/17 08:59 Last Admin: 12/13/16 08:55 Dose: 500 mg Aspirin (Aspirin Chewable) 81 mg PO DAILY [facility] Stop: 01/29/17 08:59 Last Admin: 12/13/16 08:55 Dose: 81 mg Docusate Sodium (Colace) 100 mg PO BID [facility] Stop: 01/29/17 08:59 Last Admin: 12/13/16 17:05 Dose: 100 mg Donepezil HCl (Aricept) 10 mg PO HS [facility] Stop: 01/28/17 20:59 Last Admin: 12/12/16 20:36 Dose: 10 mg Escitalopram Oxalate (Lexapro) 10 mg PO DAILY [facility] PRN Reason: Protocol Stop: 02/01/17 08:59 Last Admin: 12/13/16 08:53 Dose: 10 mg Famotidine (Pepcid) 20 mg PO DAILY [facility] Stop: 01/29/17 08:59 Last Admin: 12/13/16 08:55 Dose: 20 mg Ferrous Sulfate (Iron) 325 mg PO DAILY [facility] Stop: 01/30/17 08:59 Last Admin: 12/13/16 08:53 Dose: 325 mg Glipizide (Glucotrol) 5 mg PO BIDAC [facility] Stop: 01/29/17 07:29 Last Admin: 12/13/16 17:06 Dose: 5 mg Insulin Aspart (Novolog Insulin Sliding Scale) 0 units SUBQ ACHS [facility] PRN Reason: Protocol Stop: 01/28/17 20:59 Last Admin: 12/13/16 16:59 Dose: Not Given Insulin Detemir (Levemir Insulin) 23 units SUBQ DAILY [facility] Stop: 01/29/17 08:59 Last Admin: 12/13/16 09:01 Dose: 23 units Lisinopril (Zestril) 10 mg PO DAILY [facility] Stop: 01/30/17 08:59 Last Admin: 12/13/16 09:04 Dose: Not Given Lorazepam (Ativan) 0.5 mg PO Q4HR PRN; Protocol PRN Reason: Agitation Stop: 12/29/16 16:37 Last Admin: 12/02/16 20:29 Dose: 0.5 mg Magnesium Hydroxide (Milk Of Magnesia) 30 ml PO DAILY PRN PRN Reason: Constipation Stop: 01/30/17 08:59 Memantine (Namenda) 5 mg PO BID [facility] Stop: 02/08/17 16:59 Last Admin: 12/13/16 17:05 Dose: 5 mg Metformin HCl (Glucophage) 1,000 mg PO BID [facility] Stop: 01/28/17 19:14 Last Admin: 12/13/16 17:05 Dose: 1,000 mg Risperidone (Risperdal) 0.75 mg PO BID [facility] PRN Reason: Protocol Stop: 02/11/17 12:37 Last Admin: 12/13/16 17:05 Dose: 0.75 mg Simvastatin (Zocor) 10 mg PO HS [facility] PRN Reason: Protocol Stop: 01/28/17 20:59 Last Admin: 12/12/16 20:36 Dose: 10 mg General: weak, demented HEENT: NC/AT, PERRLA, EOMI, anicteric sclerae Neck: Supple, No JVD, No thyromegaly, +2 carotid pulse wo bruit, No LAD Lungs: CTAB Cardiovascular: RRR, Normal S1, Normal S2, without murmur Abdomen: soft, non-tender Extremities: clear Neurological: no change - Procedures Procedures: Procedures Procedure Code Date OTHER GROUP THERAPY 94.44 12/24/14 Internal Medicine Assmt/Plan - Assessment Assessment: 1.DM. 2.DEMENTIA. 3.DJD. - Plan Plan: CONTINUE ON CURRENT MEDICATION AND DIET. Nutritional Asmnt/Malnutr-PDOC - Dietary Evaluation Malnutrition Findings (Please click <Entered> for more info): Nutritional Asmnt/Malnutrition Start: 11/30/16 14: 06 Text: Status: Complete Freq: Document 11/30/16 14:06 [id number] (Rec: 11/30/16 14:28 [id number]) Nutritional Asmnt/Malnutrition Patient General Information Nutritional Screening High Risk Screening Diagnosis Major depression Pertinent Medical Hx/Surgical Hx ER: HTN, arthritis, peripheral vascular disease, psychosis, dementia Subjective Information 71 year old male. Spoke to pt sitting on edge of bed, able to ambulate. Pt was pleasant, however a poor historian, forgetful and slightly confused, not suitable for edu due to this, briefly explained [facility] diet. Pt stated usually good appetite, but does not remember if he had breakfast. Confirmed with FNS, pt did have breakfast. Pt reported UBW 130lb, pt appeared overall thin, unable to completep hysica lassessment due to clothing, moderate to eseve wasting to arms, protruding elbows. Pt was excited to calibrate bedscale and obtain CBW, but then forgot what he was doing half way. Observed pt scratching wounds on elbows. Teeth intact. 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 Estimated Nutritional Goals Calories/Kcals/Kg UBW/IBW 130lb/59.1kg Kcals Calculated 1478-1773kcal (25-30kcal/kg) Protein Calculated 59g (1g/kg) Fluid: ml 1478-1773ml (1ml/kcal) Nutritional Problem 1. Problem Problem Altered nutrition related laboratory values related to Etiology DM aeb Signs/Symptoms: glucose 278H, A1c 8.1 Intervention/Recommendation Comments 1. Recommend [id number] to promote glycemic control. Expected Outcomes/Goals Expected Outcomes/Goals 1. PO intake to meet at least 75% fo estimated nutritional needs.
--- NOTE | 2016-12-13 21:15 | Progress Notes ---
DATE: 12/13/2016 SUBJECTIVE: Case was discussed with staff of the patient, reviewed records. The patient has been wandering around the unit. Today, he was able to tell me that he is in the hospital, could not tell me the date, and did not even answer any of my questions. He is still unpredictable, impulsive, easily agitated. No side effects with the medication, no sedation, no nausea, no extrapyramidal symptoms. I will be increasing his Risperdal dose to 0.75 mg a day and so far no side effects, no sedation, no nausea, no extrapyramidal symptoms. We will continue to work with the patient in group therapy, milieu therapy, adjust medication as needed. JOB# [id number]
[2016-12-14] MEDS: INSULIN ASPART SLIDING SCALE 100 UNITS/ML UNIT SUBQ SCH ×4 (06:43→20:39)
[2016-12-14] MEDS: Multivitamin w/ Minerals Tab PO SCH (08:29)
[2016-12-14] MEDS: Aspirin 81mg Chewable Tab PO SCH (08:29)
[2016-12-14] MEDS: Ferrous Sulfate 325 MG TAB PO SCH (08:30)
[2016-12-14] MEDS: Insulin Detemir 100 units/mL 10mL Vial SUBQ SCH (09:05)
--- NOTE | 2016-12-14 18:51 | Internal Medicine Prog Note ---
Internal Medicine Subjective - Subjective Patient seen and examined:: without staff Patient is:: awake, in bed, denies any new complaints Per staff patient has:: no adverse event, eating well, confused Internal Medicine Objective - Results Result Diagrams: 11/29/16 14:06 11/29/16 14:06 Recent Labs: Laboratory Last Values WBC 9.7 Th/cmm (4.8-10.8) 11/29/16 14:06 RBC 3.71 Mil/cmm (3.80-5.80) L 11/29/16 14:06 Hgb 10.4 gm/dL (12.6-17.4) L 11/29/16 14:06 Hct 31.3 % (39.0-49.0) L 11/29/16 14:06 MCV 84.5 fl (80-99) 11/29/16 14:06 MCH 28.1 pg (27.0-31.0) 11/29/16 14:06 MCHC Differential 33.3 pg (28.0-36.0) 11/29/16 14:06 RDW 14.4 % (11.5-20.0) 11/29/16 14:06 Plt Count 221 Th/cmm (150-400) 11/29/16 14:06 MPV 9.6 fl 11/29/16 14:06 Neutrophils % 72.8 % (40.0-80.0) 11/29/16 14:06 Lymphocytes % 14.9 % (20.0-50.0) L 11/29/16 14:06 Monocytes % 7.3 % (2.0-10.0) 11/29/16 14:06 Eosinophils % 4.3 % (0.0-5.0) 11/29/16 14:06 Basophils % 0.7 % (0.0-2.0) 11/29/16 14:06 Sodium 136 mEq/L (136-145) 11/29/16 14:06 Potassium 3.9 mEq/L (3.5-5.1) 11/29/16 14:06 Chloride 107 mEq/L (98-107) 11/29/16 14:06 Carbon Dioxide 26.0 mEq/L (21.0-31.0) 11/29/16 14:06 Anion Gap 6.9 (7.0-16.0) L 11/29/16 14:06 BUN 29 mg/dL (7-25) H 11/29/16 14:06 Creatinine 1.0 mg/dL (0.7-1.3) 11/29/16 14:06 Est GFR ( Amer) TNP 11/29/16 14:06 Est GFR (Non-Af Amer) TNP 11/29/16 14:06 BUN/Creatinine Ratio 29.0 11/29/16 14:06 Glucose 278 mg/dL (70-105) H 11/29/16 14:06 POC Glucose 101 MG/DL (70 - 105) 12/14/16 16:59 Hemoglobin A1c % 8.1 % (4.0-6.0) H 11/29/16 14:06 Calcium 9.7 mg/dL (8.6-10.3) 11/29/16 14:06 Total Bilirubin 0.3 mg/dL (0.3-1.0) 11/29/16 14:06 AST 20 U/L (13-39) 11/29/16 14:06 ALT 16 U/L (7-52) 11/29/16 14:06 Alkaline Phosphatase 91 U/L (34-104) 11/29/16 14:06 Total Protein 7.3 gm/dL (6.0-8.3) 11/29/16 14:06 Albumin 4.0 gm/dL (4.2-5.5) L 11/29/16 14:06 Globulin 3.3 gm/dL 11/29/16 14:06 Albumin/Globulin Ratio 1.2 (1.0-1.8) 11/29/16 14:06 TSH 0.73 uIU/ml (0.34-5.60) 11/29/16 14:06 RPR NONREACTIVE (NONREACTIVE) 11/29/16 14:06 - Physical Exam Vitals and I&O: Vital Signs Temp 97.6 F 12/14/16 14:05 Pulse 55 12/14/16 14:05 Resp 20 12/14/16 14:05 BP 116/57 12/14/16 14:05 Pulse Ox 96 12/14/16 14:05 Intake & Output 12/13/16 12/14/16 12/14/16 18:59 06:59 18:59 Intake Total 700 700 Balance 700 700 Intake: Oral 700 700 Other: # Voids 3 3 # Bowel Movements 0 0 Active Medications: Current Medications Acetaminophen (Tylenol) 650 mg PO Q4HR PRN PRN Reason: Mild Pain / Temp above 100 Stop: 01/28/17 16:37 Al Hydrox/Mg Hydrox/Simethicone (Maalox) 30 ml PO Q4HR PRN PRN Reason: GI DISTRESS Stop: 01/28/17 16:37 Amlodipine Besylate (Norvasc) 10 mg PO DAILY [facility] Stop: 01/29/17 08:59 Last Admin: 12/14/16 08:42 Dose: Not Given Ascorbic Acid (Vitamin C) 500 mg PO DAILY [facility] Stop: 01/30/17 08:59 Last Admin: 12/14/16 08:29 Dose: 500 mg Aspirin (Aspirin Chewable) 81 mg PO DAILY [facility] Stop: 01/29/17 08:59 Last Admin: 12/14/16 08:29 Dose: 81 mg Docusate Sodium (Colace) 100 mg PO BID [facility] Stop: 01/29/17 08:59 Last Admin: 12/14/16 17:51 Dose: 100 mg Donepezil HCl (Aricept) 10 mg PO HS [facility] Stop: 01/28/17 20:59 Last Admin: 12/13/16 20:33 Dose: 10 mg Escitalopram Oxalate (Lexapro) 10 mg PO DAILY [facility] PRN Reason: Protocol Stop: 02/01/17 08:59 Last Admin: 12/14/16 08:29 Dose: 10 mg Famotidine (Pepcid) 20 mg PO DAILY [facility] Stop: 01/29/17 08:59 Last Admin: 12/14/16 08:29 Dose: 20 mg Ferrous Sulfate (Iron) 325 mg PO DAILY [facility] Stop: 01/30/17 08:59 Last Admin: 12/14/16 08:30 Dose: 325 mg Glipizide (Glucotrol) 5 mg PO BIDAC [facility] Stop: 01/29/17 07:29 Last Admin: 12/14/16 17:51 Dose: 5 mg Insulin Aspart (Novolog Insulin Sliding Scale) 0 units SUBQ ACHS [facility] PRN Reason: Protocol Stop: 01/28/17 20:59 Last Admin: 12/14/16 17:59 Dose: Not Given Insulin Detemir (Levemir Insulin) 23 units SUBQ DAILY [facility] Stop: 01/29/17 08:59 Last Admin: 12/14/16 09:05 Dose: 23 units Lisinopril (Zestril) 10 mg PO DAILY [facility] Stop: 01/30/17 08:59 Last Admin: 12/14/16 08:44 Dose: Not Given Lorazepam (Ativan) 0.5 mg PO Q4HR PRN; Protocol PRN Reason: Agitation Stop: 12/29/16 16:37 Last Admin: 12/02/16 20:29 Dose: 0.5 mg Magnesium Hydroxide (Milk Of Magnesia) 30 ml PO DAILY PRN PRN Reason: Constipation Stop: 01/30/17 08:59 Memantine (Namenda) 5 mg PO BID [facility] Stop: 02/08/17 16:59 Last Admin: 12/14/16 17:51 Dose: 5 mg Metformin HCl (Glucophage) 1,000 mg PO BID [facility] Stop: 01/28/17 19:14 Last Admin: 12/14/16 17:52 Dose: 1,000 mg Risperidone (Risperdal) 0.75 mg PO HS [facility] PRN Reason: Protocol Stop: 02/12/17 20:59 Simvastatin (Zocor) 10 mg PO HS [facility] PRN Reason: Protocol Stop: 01/28/17 20:59 Last Admin: 12/13/16 20:33 Dose: 10 mg General: weak, demented HEENT: NC/AT, PERRLA, EOMI, anicteric sclerae Neck: Supple, No JVD, No thyromegaly, +2 carotid pulse wo bruit, No LAD Lungs: CTAB Cardiovascular: RRR, Normal S1, Normal S2, without murmur Abdomen: soft, non-tender Extremities: clear Neurological: no change - Procedures Procedures: Procedures Procedure Code Date OTHER GROUP THERAPY 94.44 12/24/14 Internal Medicine Assmt/Plan - Assessment Assessment: 1.DM. 2.DEMENTIA. 3.DJD. - Plan Plan: CONTINUE ON CURRENT MEDICATION AND DIET. Nutritional Asmnt/Malnutr-PDOC - Dietary Evaluation Malnutrition Findings (Please click <Entered> for more info): Nutritional Asmnt/Malnutrition Start: 11/30/16 14: 06 Text: Status: Complete Freq: Document 11/30/16 14:06 GSUN (Rec: 11/30/16 14:28 GSUN [email or web address]) Nutritional Asmnt/Malnutrition Patient General Information Nutritional Screening High Risk Screening Diagnosis Major depression Pertinent Medical Hx/Surgical Hx ER: HTN, arthritis, peripheral vascular disease, psychosis, dementia Subjective Information 71 year old male. Spoke to pt sitting on edge of bed, able to ambulate. Pt was pleasant, however a poor historian, forgetful and slightly confused, not suitable for [facility] due to this, briefly explained [facility] diet. Pt stated usually good appetite, but does not remember if he had breakfast. Confirmed with FNS, pt did have breakfast. Pt reported UBW 130lb, pt appeared overall thin, unable to completep hysica lassessment due to clothing, moderate to eseve wasting to arms, protruding elbows. Pt was excited to calibrate bedscale and obtain CBW, but then forgot what he was doing half way. Observed pt scratching wounds on elbows. Teeth intact. Current Diet Order/ Nutrition Support PATRICIA, [id number] Pertinent Medications Colace, Glucotrol, Novolog, Levemir, Glucophage, Theragran Pertinent Labs 11/29: glucose 278H, A1c 8.1 Nutritional Hx/Data Height 1.63 m Height (Calculated Centimeters) 162.6 Current Weight (lbs) 58.967 kg Weight (Calculated Kilograms) 59.0 Weight (Calculated Grams) 90451.0 Usual body Weight (lbs) 130 [place] Body Weight 130 Weight Status Approriate GI Symptoms Usual diet at home [place]: regular, PATRICIA, [facility] Skin Integrity/Comment: Marko Law RN assessment: skin intact. Estimated Nutritional Goals Calories/Kcals/Kg UBW/IBW 130lb/59.1kg Kcals Calculated 1478-1773kcal (25-30kcal/kg) Protein Calculated 59g (1g/kg) Fluid: ml 1478-1773ml (1ml/kcal) Nutritional Problem 1. Problem Problem Altered nutrition related laboratory values related to Etiology DM aeb Signs/Symptoms: glucose 278H, A1c 8.1 Intervention/Recommendation Comments 1. Recommend [id number] to promote glycemic control. Expected Outcomes/Goals Expected Outcomes/Goals 1. PO intake to meet at least 75% fo estimated nutritional needs.
--- NOTE | 2016-12-14 20:28 | Progress Notes ---
DATE: 12/14/2016 Case was discussed with staff of the patient, reviewed records. The patient continues to be confused, irritable, continues to need redirection. Continues to be unpredictable, impulsive, continues to have poor insight. Continues to be unpredictable, impulsive, confused, unable to make safe plan for self-care or participate in a meaningful conversation. He is compliant with the medication with no side effects, no sedation, no nausea. I will be changing his Risperdal to only at bedtime because he is being sedated during the day, and we will continue to work with the patient in group therapy, milieu therapy, and adjust the medication as needed. JOB# [id number]
[2016-12-15] MEDS: INSULIN ASPART SLIDING SCALE 100 UNITS/ML UNIT SUBQ SCH ×4 (06:40→20:56)
[2016-12-15] MEDS: Ferrous Sulfate 325 MG TAB PO SCH (09:34)
[2016-12-15] MEDS: Aspirin 81mg Chewable Tab PO SCH (09:35)
[2016-12-15] MEDS: Multivitamin w/ Minerals Tab PO SCH (09:35)
[2016-12-15] MEDS: Insulin Detemir 100 units/mL 10mL Vial SUBQ SCH (09:35)
--- NOTE | 2016-12-15 10:37 | Progress Notes ---
DATE: 12/15/2016 SUBJECTIVE: The patient seen, chart reviewed, discussed with staff. The patient remains confused, irritable, still needing a lot of redirection. The patient with poor insight, disoriented, disorganized. He has been taking his medications. No side effects noted. Dr. Valdes has been making appropriate adjustments to his medication regimen. There are still continued safety concerns and certainly concerns about his ability to provide for basic food, clothing, and skilled nursing. He is here because of cursing episodes, resistant to care, agitated, restless at [place]. PLAN: We will continue to monitor and followup. Given recent dose adjustments of Risperdal, we will continue medications at current dose. [facility]# [id number]
[2016-12-16] MEDS: INSULIN ASPART SLIDING SCALE 100 UNITS/ML UNIT SUBQ SCH ×4 (06:42→21:02)
[2016-12-16] MEDS: Multivitamin w/ Minerals Tab PO SCH (08:43)
[2016-12-16] MEDS: Ferrous Sulfate 325 MG TAB PO SCH (08:43)
[2016-12-16] MEDS: Aspirin 81mg Chewable Tab PO SCH (08:44)
[2016-12-16] MEDS: Insulin Detemir 100 units/mL 10mL Vial SUBQ SCH (12:07)
--- NOTE | 2016-12-16 18:20 | General Progress Note ---
Subjective - Review of Systems Service Date: 12/16/16 Subjective: resting comfortably no distress Objective - Results Result Diagrams: 11/29/16 14:06 11/29/16 14:06 Recent Labs: Laboratory Last Values WBC 9.7 Th/cmm (4.8-10.8) 11/29/16 14:06 RBC 3.71 Mil/cmm (3.80-5.80) L 11/29/16 14:06 Hgb 10.4 gm/dL (12.6-17.4) L 11/29/16 14:06 Hct 31.3 % (39.0-49.0) L 11/29/16 14:06 MCV 84.5 fl (80-99) 11/29/16 14:06 MCH 28.1 pg (27.0-31.0) 11/29/16 14:06 MCHC Differential 33.3 pg (28.0-36.0) 11/29/16 14:06 RDW 14.4 % (11.5-20.0) 11/29/16 14:06 Plt Count 221 Th/cmm (150-400) 11/29/16 14:06 MPV 9.6 fl 11/29/16 14:06 Neutrophils % 72.8 % (40.0-80.0) 11/29/16 14:06 Lymphocytes % 14.9 % (20.0-50.0) L 11/29/16 14:06 Monocytes % 7.3 % (2.0-10.0) 11/29/16 14:06 Eosinophils % 4.3 % (0.0-5.0) 11/29/16 14:06 Basophils % 0.7 % (0.0-2.0) 11/29/16 14:06 Sodium 136 mEq/L (136-145) 11/29/16 14:06 Potassium 3.9 mEq/L (3.5-5.1) 11/29/16 14:06 Chloride 107 mEq/L (98-107) 11/29/16 14:06 Carbon Dioxide 26.0 mEq/L (21.0-31.0) 11/29/16 14:06 Anion Gap 6.9 (7.0-16.0) L 11/29/16 14:06 BUN 29 mg/dL (7-25) H 11/29/16 14:06 Creatinine 1.0 mg/dL (0.7-1.3) 11/29/16 14:06 Est GFR ( Amer) TNP 11/29/16 14:06 Est GFR (Non-Af Amer) TNP 11/29/16 14:06 BUN/Creatinine Ratio 29.0 11/29/16 14:06 Glucose 278 mg/dL (70-105) H 11/29/16 14:06 POC Glucose 269 MG/DL (70 - 105) H 12/16/16 16:21 Hemoglobin A1c % 8.1 % (4.0-6.0) H 11/29/16 14:06 Calcium 9.7 mg/dL (8.6-10.3) 11/29/16 14:06 Total Bilirubin 0.3 mg/dL (0.3-1.0) 11/29/16 14:06 AST 20 U/L (13-39) 11/29/16 14:06 ALT 16 U/L (7-52) 11/29/16 14:06 Alkaline Phosphatase 91 U/L (34-104) 11/29/16 14:06 Total Protein 7.3 gm/dL (6.0-8.3) 11/29/16 14:06 Albumin 4.0 gm/dL (4.2-5.5) L 11/29/16 14:06 Globulin 3.3 gm/dL 11/29/16 14:06 Albumin/Globulin Ratio 1.2 (1.0-1.8) 11/29/16 14:06 TSH 0.73 uIU/ml (0.34-5.60) 11/29/16 14:06 RPR NONREACTIVE (NONREACTIVE) 11/29/16 14:06 - Physical Exam Vitals and I&O: Vital Signs Temp 98.1 F 12/16/16 15:33 Pulse 99 12/16/16 15:33 Resp 19 12/16/16 15:33 BP 108/58 12/16/16 15:33 Pulse Ox 97 12/16/16 15:33 Intake & Output 12/15/16 12/16/16 12/16/16 18:59 06:59 18:59 Intake Total 750 240 Balance 750 240 Intake: Oral 750 240 Other: # Voids 3 1 # Bowel Movements 1 Stool Characteristics Soft Active Medications: Current Medications Acetaminophen (Tylenol) 650 mg PO Q4HR PRN PRN Reason: Mild Pain / Temp above 100 Stop: 01/28/17 16:37 Al Hydrox/Mg Hydrox/Simethicone (Maalox) 30 ml PO Q4HR PRN PRN Reason: GI DISTRESS Stop: 01/28/17 16:37 Amlodipine Besylate (Norvasc) 10 mg PO DAILY [facility] Stop: 01/29/17 08:59 Last Admin: 12/16/16 08:33 Dose: Not Given Ascorbic Acid (Vitamin C) 500 mg PO DAILY [facility] Stop: 01/30/17 08:59 Last Admin: 12/16/16 08:44 Dose: 500 mg Aspirin (Aspirin Chewable) 81 mg PO DAILY [facility] Stop: 01/29/17 08:59 Last Admin: 12/16/16 08:44 Dose: 81 mg Docusate Sodium (Colace) 100 mg PO BID [facility] Stop: 01/29/17 08:59 Last Admin: 12/16/16 16:54 Dose: 100 mg Donepezil HCl (Aricept) 10 mg PO HS [facility] Stop: 01/28/17 20:59 Last Admin: 12/15/16 20:57 Dose: 10 mg Escitalopram Oxalate (Lexapro) 10 mg PO DAILY [facility] PRN Reason: Protocol Stop: 02/01/17 08:59 Last Admin: 12/16/16 08:43 Dose: 10 mg Famotidine (Pepcid) 20 mg PO DAILY [facility] Stop: 01/29/17 08:59 Last Admin: 12/16/16 08:44 Dose: 20 mg Ferrous Sulfate (Iron) 325 mg PO DAILY [facility] Stop: 01/30/17 08:59 Last Admin: 12/16/16 08:43 Dose: 325 mg Glipizide (Glucotrol) 5 mg PO BIDAC [facility] Stop: 01/29/17 07:29 Last Admin: 12/16/16 16:53 Dose: 5 mg Insulin Aspart (Novolog Insulin Sliding Scale) 0 units SUBQ ACHS [facility] PRN Reason: Protocol Stop: 01/28/17 20:59 Last Admin: 12/16/16 16:58 Dose: 4 units Insulin Detemir (Levemir Insulin) 23 units SUBQ DAILY [facility] Stop: 01/29/17 08:59 Last Admin: 12/16/16 12:07 Dose: Not Given Lisinopril (Zestril) 10 mg PO DAILY [facility] Stop: 01/30/17 08:59 Last Admin: 12/16/16 08:45 Dose: Not Given Lorazepam (Ativan) 0.5 mg PO Q4HR PRN; Protocol PRN Reason: Agitation Stop: 12/29/16 16:37 Last Admin: 12/16/16 16:52 Dose: 0.5 mg Magnesium Hydroxide (Milk Of Magnesia) 30 ml PO DAILY PRN PRN Reason: Constipation Stop: 01/30/17 08:59 Memantine (Namenda) 5 mg PO BID [facility] Stop: 02/08/17 16:59 Last Admin: 12/16/16 16:54 Dose: 5 mg Metformin HCl (Glucophage) 1,000 mg PO BID [facility] Stop: 01/28/17 19:14 Last Admin: 12/16/16 16:53 Dose: 1,000 mg Risperidone (Risperdal) 1 mg PO HS [facility] PRN Reason: Protocol Stop: 02/14/17 07:17 Simvastatin (Zocor) 10 mg PO HS [facility] PRN Reason: Protocol Stop: 01/28/17 20:59 Last Admin: 12/15/16 20:56 Dose: 10 mg - Procedures Procedures: Procedures Procedure Code Date OTHER GROUP THERAPY 94.44 12/24/14 Assessment/Plan - Problem List Patient Problems: All Active Problems Depression (Acute) F32.9 Diabetes (Acute) E11.9 Hypertension (Acute) I10 Psychosis (Acute) F29 - Assessment Assessment: 1.DM. 2.DEMENTIA. 3.DJD. - Plan Plan: cont current treatment Nutritional Asmnt/Malnutr-PDOC - Dietary Evaluation Malnutrition Findings (Please click <Entered> for more info): Nutritional Asmnt/Malnutrition Start: 11/30/16 14: 06 Text: Status: Complete Freq: Document 11/30/16 14:06 MONIQUE (Rec: 11/30/16 14:28 [email or web address]) Nutritional Asmnt/Malnutrition Patient General Information Nutritional Screening High Risk Screening Diagnosis Major depression Pertinent Medical Hx/Surgical Hx ER: HTN, arthritis, peripheral vascular disease, psychosis, dementia Subjective Information 71 year old male. Spoke to pt sitting on edge of bed, able to ambulate. Pt was pleasant, however a poor historian, forgetful and slightly confused, not suitable for [facility] due to this, briefly explained [facility] diet. Pt stated usually good appetite, but does not remember if he had breakfast. Confirmed with FNS, pt did have breakfast. Pt reported UBW 130lb, pt appeared overall thin, unable to completep hysica lassessment due to clothing, moderate to eseve wasting to arms, protruding elbows. Pt was excited to calibrate bedscale and obtain CBW, but then forgot what he was doing half way. Observed pt scratching wounds on elbows. Teeth intact. Current Diet Order/ Nutrition Support PATRICIA, [id number] Pertinent Medications Colace, Glucotrol, Novolog, Levemir, Glucophage, Theragran Pertinent Labs 11/29: glucose 278H, A1c 8.1 Nutritional Hx/Data Height 1.63 m Height (Calculated Centimeters) 162.6 Current Weight (lbs) 58.967 kg Weight (Calculated Kilograms) 59.0 Weight (Calculated Grams) 76913.0 Usual body Weight (lbs) 130 [place] Body Weight 130 Weight Status Approriate GI Symptoms Usual diet at home [place]: regular, PATRICIA, [facility] Skin Integrity/Comment: Marko Miranda. scallop binder: skin intact. Estimated Nutritional Goals Calories/Kcals/Kg UBW/IBW 130lb/59.1kg Kcals Calculated 1478-1773kcal (25-30kcal/kg) Protein Calculated 59g (1g/kg) Fluid: ml 1478-1773ml (1ml/kcal) Nutritional Problem 1. Problem Problem Altered nutrition related laboratory values related to Etiology DM aeb Signs/Symptoms: glucose 278H, A1c 8.1 Intervention/Recommendation Comments 1. Recommend [id number] to promote glycemic control. Expected Outcomes/Goals Expected Outcomes/Goals 1. PO intake to meet at least 75% fo estimated nutritional needs.
--- NOTE | 2016-12-16 20:09 | Progress Notes ---
DATE: 12/16/2016 SUBJECTIVE: The patient seen, chart reviewed, discussed with staff. The patient remains quite confused, disorganized, making delusional and nonsensical statements. "Can you tell them about the family that is over there," one staff looked over, there was no family. The patient mumbling to himself, disoriented, disorganized, requiring a lot of prompting and redirection. Still acting out behaviors. Still requiring a lot of redirection per staff. Sleeping fairly well, eating with prompting. ASSESSMENT: The patient remains disorganized, disoriented, poor insight, irritable, needing a lot of redirection, prompting, still resistant to care. PLAN: We will continue to monitor and follow up. We will increase his Risperdal dosing today to 1 mg. The patient is not safe for a lower level of care at this time. JOB# [id number]
[2016-12-17] MEDS: INSULIN ASPART SLIDING SCALE 100 UNITS/ML UNIT SUBQ SCH ×2 (06:44→12:30)
[2016-12-17] MEDS: Ferrous Sulfate 325 MG TAB PO SCH (08:43)
[2016-12-17] MEDS: Aspirin 81mg Chewable Tab PO SCH (08:44)
[2016-12-17] MEDS: Multivitamin w/ Minerals Tab PO SCH (08:44)
[2016-12-17] MEDS: Insulin Detemir 100 units/mL 10mL Vial SUBQ SCH (08:53)
--- NOTE | 2016-12-17 17:28 | Discharge Summary ---
DATE OF DISCHARGE: 12/17/2016 IDENTIFYING INFORMATION: The patient is 71-year-old male. HISTORY OF PRESENT ILLNESS: The patient was admitted because of confusion and agitation, psychosis. He came from halfway. He was a poor historian, unable to participate in a meaningful conversation. ____, have been seeing him at [place]. COURSE IN THE HOSPITAL: The patient was started back on his medication. The patient was continued with amlodipine, aspirin, Aricept 10 mg at bedtime, citalopram was added and increased to 10 mg daily, also Risperdal was added. I increased it to ____ to 0.75 mg at bedtime. He was also started on Namenda 5 mg twice a day and also Risperdal was increased by Dr. Nash yesterday to 1 mg at bedtime. The patient also was continued with simvastatin, metformin, magnesium, lisinopril, insulin, ____, iron, famotidine. The patient was doing very well. We felt he could be taking ____ at the halfway. At this stage, he was not acting any way psychotic or dangerous. He was sleeping well, eating well. So, we felt he could be discharged to a lesser level of care. FINAL DIAGNOSES: AXIS I: Major depression with psychosis and dementia. MEDICAL DIAGNOSES: As per Dr. Campbell. The patient will be going to [place]. I will follow up with the patient there. EXPECTED OUTCOME: ____. The patient complies with the above. [facility]# [id number]
== END 2016-12-17 15:40 | disposition home or self-care (01) | DRG 884 ==
LOC: ER 13:18 → GERO 15:48
PROVIDERS: ADMIT Psychiatry & Neurology Psychiatry; ATTEND Psychiatry & Neurology Psychiatry
DX: F03.91 Unspecified dementia, unspecified severity, with behavioral disturbance (principal); E11.51 Type 2 diabetes mellitus with diabetic peripheral angiopathy without gangrene; D64.9 Anemia, unspecified; F33.9 Major depressive disorder, recurrent, unspecified; F29 Unspecified psychosis not due to a substance or known physiological condition; I10 Essential (primary) hypertension; E78.5 Hyperlipidemia, unspecified; M19.90 Unspecified osteoarthritis, unspecified site; G89.29 Other chronic pain; E78.00 Pure hypercholesterolemia, unspecified; Z91.83 Wandering in diseases classified elsewhere
CPT/HCPCS: 36415-UA; 80053-TC; 82948-90; 83036-90; 84443-TC; 85025-TC; 86592-TC; G0410; J1815; Z7610